=== PATIENT | male | born 1965 | race Caucasian/White ===

== ENCOUNTER 2021-02-14 09:49 | Outpatient (REF) | payer MEDICAID, SELFPAY ==
[2021-02-14 11:12] LABS: MANUAL DIFF FLAG NO
[2021-02-14 12:05] LABS: Basophils Percent Auto 0.3 % (0-2); Eosinophils Absolute Auto 0.1 X10*3/uL (0.0-0.4); Eosinophils Percent Auto 1.1 % (0-4); Hematocrit 41.7 % (42.0-52.0); Hemoglobin 14.3 g/dl (14.0-18.0); Imm Gran Abs Auto 0.03 X10*3/uL (0.00-0.03); Imm Gran Pct Auto 0.3 % (0.0-0.4); Lymphocytes Absolute Auto 2.1 X10*3/uL (1.2-4.9); Lymphocytes Percent Auto 23.6 % (20-40); Mean Corpuscular HGB Conc 34.3 g/dl (31.0-36.0); Mean Corpuscular Hemoglobin 28.8 pg (27.0-33.0); Mean Corpuscular Volume 83.9 fL (80.0-98.0); Mean Platelet Volume 10.9 fL (9.4-12.4); Monocytes Absolute Auto 0.6 X10*3/uL (0.1-1.2); Monocytes Percent Auto 6.2 % (2-11); Neutrophils Absolute Auto 6.2 x10*3/uL (2.0-8.3); Neutrophils Percent Auto 68.5 % (45-73); Platelet Count 255 X10*3/uL (160-400); Red Blood Count 4.97 X10*6/uL (4.60-5.80)
== END 2021-02-14 09:50 | disposition home or self-care (01) ==
LOC: HO.LAB 09:49
PROVIDERS: PCP Internal Medicine; Visit Provider Internal Medicine Pulmonary Disease
DX: J45.909 Unspecified asthma, uncomplicated (principal); Z91.09 Other allergy status, other than to drugs and biological substances
CPT/HCPCS: 36415; 82785; 85025; 86003; 99202

== ENCOUNTER 2021-02-26 08:53 | Outpatient (REF) | payer MEDICAID, SELFPAY ==
--- NOTE | 2021-02-26 14:35 | PFT_ITS ---
FLOWS: FEV1 92% of predicted at 3.17 L. FVC 88% of predicted at 3.90 L. FEV1 to FVC ratio of 0.81. No bronchodilator response except in small to medium airways. LUNG VOLUMES: Total lung capacity 81% of predicted at 5.19 L. Residual volume 71% of predicted at 1.39 L. Slow vital capacity 86% of predicted at 3.81 L. Expiratory reserve volume 105% of predicted at 1.36 L. Diffusion capacity is mildly decreased, diffusion capacity adjust to normal after correction for alveolar ventilation. IMPRESSION: No obstructive or restrictive ventilatory defect. No bronchodilator response except in small to medium airways. MD OSBALDO Au/MODL / [id number]
== END 2021-02-26 08:54 | disposition home or self-care (01) ==
LOC: HO.RESP 08:53
PROVIDERS: Visit Provider Internal Medicine Pulmonary Disease
DX: J45.909 Unspecified asthma, uncomplicated (principal)
CPT/HCPCS: 94060; 94727; 94729

== ENCOUNTER → 2021-03-06 08:57 | Outpatient (BNVA) | payer MEDICAID, SELFPAY | PROVIDERS: PCP Internal Medicine; Visit Provider Internal Medicine Pulmonary Disease | DX: J45.909 Unspecified asthma, uncomplicated (principal) | CPT/HCPCS: 99212 ==

== ENCOUNTER 2022-01-07 11:42 | Outpatient (REF) | payer MEDICAID, SELFPAY ==
--- NOTE | ~2022-01-07 | XR_ITS ---
EXAMINATION: XR SHOULDER, LEFT CLINICAL INFORMATION: Pain COMPARISON: None TECHNIQUE: AP external rotation, Grashey, scapular Y, and axillary views of the left shoulder. FINDINGS: Bone alignment is normal. No fracture or dislocation. Normal glenohumeral joint. Arthritis at the acromioclavicular joint. Normal soft tissues. XR/XR shoulder LT min 2V IMPRESSION: Arthritis at the acromioclavicular joint.
== END 2022-01-07 11:43 | disposition home or self-care (01) ==
LOC: HO.XRAY 11:42
PROVIDERS: PCP Registered Nurse; Visit Provider Emergency Medicine
DX: M25.512 Pain in left shoulder (principal)
CPT/HCPCS: 73030

== ENCOUNTER 2022-07-09 11:50 | Emergency (ER) | payer MEDICAID, SELFPAY ==
--- NOTE | ~2022-07-09 | XR_ITS ---
EXAMINATION: XR CHEST CLINICAL INFORMATION: Shortness of breath COMPARISON: None available. TECHNIQUE: 2 views of the chest were obtained. FINDINGS: No significant abnormality is noted involving the heart, lungs, mediastinum, bony thorax or soft tissues. XR/XR chest 2V IMPRESSION: Unremarkable examination.
--- NOTE | 2022-07-09 12:17 | ED_ITS ---
HPI - SOB/Dyspnea General Chief Complaint: Dyspnea Stated Complaint: Trouble breathing Time Seen by Provider: 07/09/22 14:18 History of Present Illness HPI Narrative: patient complains of sneezing congestion feeling like there is Dust in is throat is lungs, with some episodes of difficulty breathing which is described as feeling mild chest tightness and feeling some dust or irritation in the back of his throat, he denies any chest pain, he is not short of breath now, he has no difficulty swallowing but feels some throat irritation as he swallows He also says he has had episodes of anxiety which he associates with this shortness of breath but is not sure, he denies any suicidal or homicidal thoughts he is not hearing voices and he is not depressed He denies headache he denies chest pain he denies abdominal pain nausea or vomiting denies any calf pain or swelling denies any leg swelling Related Data Home Medications Medication Instructions Recorded Confirmed albuterol sulfate 90 mcg/actuation 2 puff inhalation Q6H PRN 02/14/21 aerosol inhaler Previous Rx's Medication Instructions Recorded cetirizine 10 mg tablet 10 mg PO DAILY PRN allergy 07/09/22 symptoms #30 tabs lorazepam 1 mg tablet (Ativan) 1 mg PO BID PRN anxiety #5 tabs 07/09/22 Allergies Allergy/AdvReac Type Severity Reaction Status Date / Time house dust Allergy Unknown Unknown Verified 03/06/21 09:00 [facility] Past Medical History Source: nursing notes reviewed Social History Social History Advance Directives: No Advance Directives Information Provided: No Physical Exam Vital Signs: Vital Signs: Last Vital Signs Temp 97.9 F 07/09/22 16:00 Pulse 85 07/09/22 16:00 Resp 16 07/09/22 16:00 BP 171/92 H 07/09/22 16:00 Pulse Ox 100 07/09/22 16:00 O2 Del Method Room Air 07/09/22 16:00 BMI result Body Mass Index 25.1 General appearance no acute distress comfortable cooperative Eyes no redness or discharge The sinuses no tender Pharynx is clear without redness swelling or exudate, uvula is midline, there is no drooling, voice is normal The neck is palpated while he swallows any swallows easily no mass or swelling appreciated There is no stridor Neck is supple Chest clear to auscultation bilateral with full symmetric equal breath sounds no adventitious sounds Heart no murmur Abdomen soft nontender Extremities range of motion x4 without any calf tenderness or swelling no pedal edema Skin no rash Course Course Course Narrative: RME - 57 yo male with history of allergies and asthma who present to the ER for evaluation of difficulty breathing and sensation that there is dust in his lungs for the last 2 weeks. Hypertensive, tachycardic in triage but saturating 100% and speaking in complete sentences. Lungs CTAB on exam. Plan: CXR, EKG, lab workup, COVID swab. CBC was without acute abnormality, D-dimer was checked under 150, patient's pulse was 85, he had no shortness of breath in the emergency room, blood clot very unlikely, chemistry did show a glucose of 323, and patient is advised to follow with his doctor to discuss best management of his diabetes Chest x-ray was normal, EKG was a normal sinus rhythm with a rate of 87, RI and QRS were normal, QT was normal, there were no acute ST changes no acute ischemic changes As patient has be using his inhaler a lot at home he is treated with prednisone and cetirizine for possible allergies, as he does feel anxiety he is given a script for Ativan His main complaint of feeling like his throat is blocked may be helped by the prednisone but in the ER he is easily swallowing food and drink, no mass was appreciated, the pharynx was totally normal in appearance and if symptom co ntinues he could follow with his doctor for referral to ENT to be scoped but at this time there is no acute emergency in his throat Well-appearing patient no chest pain no shortness of breath now, tolerating p.o. easily is treated for allergies and asthma and anxiety Medical Decision Making Lab Data [facility] Lab Attestation statement: I reviewed the patient's lab results. 07/09/22 12:41 07/09/22 12:41 Labs: Lab Results 07/09/22 07/09/22 07/09/22 Range/Units 12:41 12:41 12:41 WBC 9.9 (4.8-10.8) X10*3/uL RBC 4.91 (4.60-5.80) X10*6/uL Hgb 13.9 L (14.0-18.0) g/dl Hct 41.0 L (42.0-52.0) % MCV 83.5 (80.0-98.0) fL MCH 28.3 (27.0-33.0) pg MCHC 33.9 (31.0-36.0) g/dl RDW 12.7 (11.0-16.0) % Plt Count 248 (160-400) X10*3/uL MPV 10.7 (9.4-12.4) fL Immature Gran % (Auto) 0.2 (0.0-0.4) % Neut % (Auto) 68.1 (45-73) % Lymph % (Auto) 23.5 (20-40) % [place] % (Auto) 7.2 (2-11) % Eos % (Auto) 0.8 (0-4) % Baso % (Auto) 0.2 (0-2) % Lymph # (Auto) 2.3 (1.2-4.9) X10*3/uL [place] # (Auto) 0.7 (0.1-1.2) X10*3/uL Eos # (Auto) 0.1 (0.0-0.4) X10*3/uL Baso # (Auto) 0.0 (0.0-0.2) X10*3/uL Abs Immat Gran (auto) 0.02 (0.00-0.03) X10*3/uL Absolute Neuts (auto) 6.7 (2.0-8.3) x10*3/uL Absolute Nucleated RBC 0.000 (0.0-0.012) X10*3/uL Nucleated RBC % (auto) 0.0 (0.0-0.2) /100WBC D-Dimer High Sensitivty NG/ML Sodium 136 (135-145) mmol/L Potassium 4.3 (3.3-5.1) mmol/L Chloride 101 (96-108) mmol/L Carbon Dioxide 24 (22-29) mmol/L Anion Gap 15 (12-20) BUN 21 H (9-16) mg/dL Creatinine 1.23 (0.5-1.4) mg/dL Estim Creat Clear Calc 63.4 Estimated GFR > 60 Random Glucose 323 H (60-115) mg/dL Calcium 9.5 (8.4-10.2) mg/dL Magnesium 1.9 (1.6-2.6) mg/dL Total Bilirubin 0.7 (0.0-1.0) mg/dL Direct Bilirubin 0.2 (0.0-0.5) mg/dL AST 18 (5-37) U/L ALT 18 (0-40) U/L Alkaline Phosphatase 79 (39-117) U/L B-Natriuretic Peptide 14 (<100) pg/mL Total Protein 7.3 (6.5-8.0) g/dL Albumin 4.0 (3.5-5.0) g/dL COVID-19 ([facility]ELLE) (Negative) COVID-19 Clin Com 07/09/22 07/09/22 Range/Units 12:41 15:24 WBC (4.8-10.8) X10*3/uL RBC (4.60-5.80) X10*6/uL Hgb (14.0-18.0) g/dl Hct (42.0-52.0) % MCV (80.0-98.0) fL MCH (27.0-33.0) pg MCHC (31.0-36.0) g/dl RDW (11.0-16.0) % Plt Count (160-400) X10*3/uL MPV (9.4-12.4) fL Immature Gran % (Auto) (0.0-0.4) % Neut % (Auto) (45-73) % Lymph % (Auto) (20-40) % [place] % (Auto) (2-11) % Eos % (Auto) (0-4) % Baso % (Auto) (0-2) % Lymph # (Auto) (1.2-4.9) X10*3/uL [place] # (Auto) (0.1-1.2) X10*3/uL Eos # (Auto) (0.0-0.4) X10*3/uL Baso # (Auto) (0.0-0.2) X10*3/uL Abs Immat Gran (auto) (0.00-0.03) X10*3/uL Absolute Neuts (auto) (2.0-8.3) x10*3/uL Absolute Nucleated RBC (0.0-0.012) X10*3/uL Nucleated RBC % (auto) (0.0-0.2) /100WBC D-Dimer High Sensitivty < 150 NG/ML Sodium (135-145) mmol/L Potassium (3.3-5.1) mmol/L Chloride (96-108) mmol/L Carbon Dioxide (22-29) mmol/L Anion Gap (12-20) BUN (9-16) mg/dL Creatinine (0.5-1.4) mg/dL Estim Creat Clear Calc Estimated GFR Random Glucose (60-115) mg/dL Calcium (8.4-10.2) mg/dL Magnesium (1.6-2.6) mg/dL Total Bilirubin (0.0-1.0) mg/dL Direct Bilirubin (0.0-0.5) mg/dL AST (5-37) U/L ALT (0-40) U/L Alkaline Phosphatase (39-117) U/L B-Natriuretic Peptide (<100) pg/mL Total Protein (6.5-8.0) g/dL Albumin (3.5-5.0) g/dL COVID-19 ([facility]LE) Negative (Negative) COVID-19 Clin Com See Note Discharge Plan Discharge Clinical Impression: Asthma, Allergies, Anxiety Patient Disposition: Home, Self-Care Additional Instructions: no sign of any dangerous or concerning condition now Chest x-ray was normal EKG did not show any sign of heart attack Blood clot test was negative Other lab work did show your sugar was over 300 so follow closely with primary doctor to make sure your diabetes medicines are just did the best possible Return to the ER any time any worse condition or any concerns We are treating allergies with [facility] allergy medicine If you think you are getting occasional anxiety attacks you could use Ativan if needed and see if it is helpful For both these conditions follow with primary doctor Prescriptions: New cetirizine 10 mg tablet 10 mg PO DAILY PRN (Reason: allergy symptoms) Qty: 30 0RF lorazepam [Ativan] 1 mg tablet 1 mg PO BID PRN (Reason: anxiety) Qty: 5 0RF No Action albuterol sulfate 90 mcg/actuation HFA aerosol inhaler 2 puff inhalation Q6H PRN Interventions: ED Discharge Assessment Last Done: 07/09/22 17:38 Discharge Date/Time: 07/09/22 17:38
[2022-07-09 12:18] VITALS: BP 187/91; PULSE 104; RESP 18; TEMP 36.6; O2SAT 100; BMI 25.1
--- NOTE | 2022-07-09 12:19 | ECG_ITS ---
Test Reason : sob Blood Pressure : / mmHG Vent. Rate : 087 BPM Atrial Rate : 087 BPM P-R Int : 128 ms QRS Dur : 080 ms QT Int : 338 ms P-R-T Axes : 047 029 033 degrees QTc Int : 406 ms Normal sinus rhythm Normal ECG No previous ECGs available Referred By: Susan Patterson Electronically Signed By:ANOOP SALAS MD
[2022-07-09 12:51] LABS: MANUAL DIFF FLAG NO
[2022-07-09 12:55] LABS: Basophils Percent Auto 0.2 % (0-2); Eosinophils Absolute Auto 0.1 X10*3/uL (0.0-0.4); Eosinophils Percent Auto 0.8 % (0-4); Hemoglobin 13.9 g/dl (14.0-18.0); Imm Gran Abs Auto 0.02 X10*3/uL (0.00-0.03); Imm Gran Pct Auto 0.2 % (0.0-0.4); Lymphocytes Absolute Auto 2.3 X10*3/uL (1.2-4.9); Lymphocytes Percent Auto 23.5 % (20-40); Mean Corpuscular HGB Conc 33.9 g/dl (31.0-36.0); Mean Corpuscular Hemoglobin 28.3 pg (27.0-33.0); Mean Corpuscular Volume 83.5 fL (80.0-98.0); Mean Platelet Volume 10.7 fL (9.4-12.4); Monocytes Absolute Auto 0.7 X10*3/uL (0.1-1.2); Monocytes Percent Auto 7.2 % (2-11); Neutrophils Absolute Auto 6.7 x10*3/uL (2.0-8.3); Neutrophils Percent Auto 68.1 % (45-73); Platelet Count 248 X10*3/uL (160-400); Red Blood Count 4.91 X10*6/uL (4.60-5.80); Red Cell Distribution Width 12.7 % (11.0-16.0); White Blood Count 9.9 X10*3/uL (4.8-10.8)
[2022-07-09 13:07] LABS: Alanine Aminotransferase 18 U/L (0-40); Alkaline Phosphatase 79 U/L (39-117); Anion Gap 15 (12-20); Aspartate Amino Transferase 18 U/L (5-37); Bilirubin Direct 0.2 mg/dL (0.0-0.5); Bilirubin Total 0.7 mg/dL (0.0-1.0); Blood Urea Nitrogen 21 mg/dL (9-16); COVID-19 Test Negative (Negative); Calcium 9.5 mg/dL (8.4-10.2); Carbon Dioxide 24 mmol/L (22-29); Chloride 101 mmol/L (96-108); Creatinine Clr Calc Pharmacy 63.4; Estimated Glomerular Filt Rate > 60; Glucose Random 323 mg/dL (60-115); IDNOW Serial# 08D9AD1C; Magnesium 1.9 mg/dL (1.6-2.6); Potassium 4.3 mmol/L (3.3-5.1); Sodium 136 mmol/L (135-145); Total Protein 7.3 g/dL (6.5-8.0)
[2022-07-09 13:13] LABS: B Type Natriuretic Peptide 14 pg/mL (<100)
[2022-07-09 16:00] VITALS: BP 171/92; PULSE 85; RESP 16; TEMP 36.6; O2SAT 100
[2022-07-09 16:26] LABS: D Dimer High Sensitivity < 150 NG/ML
== END 2022-07-09 17:38 | disposition home or self-care (01) ==
PROVIDERS: Physician Assistant; Physician Assistant Medical; Emergency Provider Emergency Medicine; PCP Registered Nurse
DX: J45.909 Unspecified asthma, uncomplicated (principal); T78.40XA Allergy, unspecified, initial encounter; X58.XXXA Exposure to other specified factors, initial encounter; F41.9 Anxiety disorder, unspecified; R06.02 Shortness of breath; I10 Essential (primary) hypertension; R00.0 Tachycardia, unspecified; Z20.822 Contact with and (suspected) exposure to COVID-19; E11.9 Type 2 diabetes mellitus without complications; Z79.899 Other long term (current) drug therapy
CPT/HCPCS: 36415; 71046; 80048; 80076; 83735; 83880; 85025; 85379; 87635; 93005; 99283; 99284

== ENCOUNTER 2023-03-06 11:09 | Outpatient (REF) | payer MEDICAID, SELFPAY ==
[2023-03-06 14:14] LABS: Alanine Aminotransferase 14 U/L (0-40); Albumin Level 3.9 g/dL (3.5-5.0); Alkaline Phosphatase 93 U/L (39-117); Anion Gap 14 (12-20); Aspartate Amino Transferase 13 U/L (5-37); Bilirubin Total 0.5 mg/dL (0.0-1.0); Blood Urea Nitrogen 21 mg/dL (9-16); Calcium 9.7 mg/dL (8.4-10.2); Carbon Dioxide 26 mmol/L (22-29); Chloride 99 mmol/L (96-108); Cholesterol 208 mg/dL (<200); Estimated Glomerular Filt Rate 53; Glucose Random 336 mg/dL (60-115); HDL Cholesterol 40 mg/dL (>40); LDL Cholesterol Calculated 147 mg/dL (<100); Potassium 4.7 mmol/L (3.3-5.1); Sodium 134 mmol/L (135-145); Total Protein 7.5 g/dL (6.5-8.0); Triglycerides 107 mg/dL (<150)
[2023-03-06 15:38] LABS: Creatinine Urine 122.12 mg/dL; Microalbum/Creatinine Ratio Ur 249.7 ug/mg cr (<30)
== END 2023-03-06 11:10 | disposition home or self-care (01) ==
LOC: HO.HHCL 11:09
PROVIDERS: Visit Provider General Practice
DX: E11.65 Type 2 diabetes mellitus with hyperglycemia (principal)
CPT/HCPCS: 36415; 80053; 80061; 82043; 82570

== ENCOUNTER 2023-09-12 14:05 | Outpatient (REF) | payer MEDICAID, SELFPAY ==
[2023-09-12 16:20] LABS: MANUAL DIFF FLAG NO
[2023-09-12 16:22] LABS: Basophils Percent Auto 0.4 % (0-2); Eosinophils Absolute Auto 0.1 X10*3/uL (0.0-0.4); Eosinophils Percent Auto 1.4 % (0-4); Hemoglobin 13.7 g/dl (14.0-18.0); Imm Gran Abs Auto 0.04 X10*3/uL (0.00-0.03); Imm Gran Pct Auto 0.4 % (0.0-0.4); Lymphocytes Absolute Auto 2.4 X10*3/uL (1.2-4.9); Mean Corpuscular HGB Conc 34.3 g/dl (31.0-36.0); Mean Corpuscular Hemoglobin 28.5 pg (27.0-33.0); Mean Corpuscular Volume 83.2 fL (80.0-98.0); Mean Platelet Volume 10.4 fL (9.4-12.4); Monocytes Absolute Auto 0.7 X10*3/uL (0.1-1.2); Monocytes Percent Auto 7.4 % (2-11); Neutrophils Absolute Auto 6.2 x10*3/uL (2.0-8.3); Neutrophils Percent Auto 65.4 % (45-73); Platelet Count 250 X10*3/uL (160-400); Red Blood Count 4.81 X10*6/uL (4.60-5.80); Red Cell Distribution Width 12.5 % (11.0-16.0); White Blood Count 9.4 X10*3/uL (4.8-10.8)
[2023-09-12 16:33] LABS: Estimated Average Glucose 223 mg/dL; Hemoglobin A1c % 9.4 % (<6.0)
[2023-09-12 16:35] LABS: Alanine Aminotransferase 19 U/L (0-40); Alkaline Phosphatase 84 U/L (39-117); Anion Gap 13 (12-20); Aspartate Amino Transferase 14 U/L (5-37); Bilirubin Total 0.4 mg/dL (0.0-1.0); Blood Urea Nitrogen 18 mg/dL (9-16); Calcium 9.8 mg/dL (8.4-10.2); Carbon Dioxide 25 mmol/L (22-29); Chloride 101 mmol/L (96-108); Cholesterol 134 mg/dL (<200); Estimated Glomerular Filt Rate > 60; Glucose Random 227 mg/dL (60-115); HDL Cholesterol 34 mg/dL (>40); LDL Cholesterol Calculated 85 mg/dL (<100); Potassium 4.1 mmol/L (3.3-5.1); Sodium 135 mmol/L (135-145); Total Protein 7.4 g/dL (6.5-8.0); Triglycerides 75 mg/dL (<150)
[2023-09-12 16:37] LABS: Creatinine Urine 72.61 mg/dL; Microalbum/Creatinine Ratio Ur 327.7 ug/mg cr (<30)
[2023-09-12 16:54] LABS: TSH reflex Free T4 0.92 uIU/mL (0.32-4.0)
== END 2023-09-12 14:06 | disposition home or self-care (01) ==
LOC: HO.HHCL 14:05
PROVIDERS: Nurse Practitioner Family; Visit Provider General Practice
DX: R53.83 Other fatigue (principal); E11.65 Type 2 diabetes mellitus with hyperglycemia
CPT/HCPCS: 36415; 80053; 80061; 82043; 82570; 83036; 84443; 85025

== ENCOUNTER 2023-11-18 13:20 | Outpatient (REF) | payer MEDICAID, SELFPAY ==
--- NOTE | ~2023-11-18 | XR_ITS ---
EXAMINATION: XR SHOULDER, RIGHT CLINICAL INFORMATION: Right shoulder pain COMPARISON: None available. TECHNIQUE: Three views of the right shoulder. FINDINGS: No fracture or malalignment. Mild glenohumeral and acromioclavicular osteoarthritis. XR/XR shoulder RT min 2V IMPRESSION: Mild glenohumeral and acromioclavicular osteoarthritis. No fracture. Electronically signed by: Jonathan Khan MD 11/18/2023 03:16 PM EDT
== END 2023-11-18 13:21 | disposition home or self-care (01) ==
LOC: HO.HHCX 13:20
PROVIDERS: Visit Provider General Practice
DX: M25.511 Pain in right shoulder (principal); G89.29 Other chronic pain
CPT/HCPCS: 73030

== ENCOUNTER 2023-12-12 10:00 | Outpatient (RCR) | payer MEDICAID, SELFPAY ==
[2023-10-10 10:43] VITALS: BP 188/94; PULSE 78
== END 2024-01-22 10:51 | disposition home or self-care (01) ==
LOC: HO.PT 10:00
PROVIDERS: PCP Registered Nurse; Visit Provider Nurse Practitioner Family
DX: I69.30 Unspecified sequelae of cerebral infarction (principal)
CPT/HCPCS: 97110; 97112; 97116; 97162; 97530

== ENCOUNTER 2023-12-17 10:00 | Outpatient (RCR) | payer MEDICAID, SELFPAY ==
--- NOTE | 2023-11-05 12:43 | MHC.OT.EP ---
[address] [phone] Occupational Therapy Plan of Care Patient Name: Sen Hameed Date of Evaluation: 11/05/23 Diagnosis: L CVA - R UE DECREASED ROM/STRENGTH Pain Location: R UE Pain Score: 6 Pain Scale Used: Numeric (0 - 10) Aggravating Factors: weight bearing onto UE and ER of shoulder Alleviating Factors: resting/ immobilizing Assessment: Pt is a 58 yr. old R hand dominant male who had a L CVA in July 2023. He went to [facility] where he was treated for the CVA and his girlfriend reports he had therapy through [facility] as well. He has decreased AROM of his R UE and hand, but has full PROM of his UE and hand. Pt presents w/ normal tone, and wrist in flexion, he is able to passively move his shoulder, elbow, wrist, and hand w/ minimal complaints of pain and restriction. Pt reports pain throughout his entire arm and into his hand . He has been referred to skilled OT therapy for increased functional use of his UE. Frequency and Duration: The patient will be seen 2xs a week 8 weeks Short Term Goals: Pt will be complaint w/ orthoses wear for increased wrist/ digit extension Pt will be complaint w/ his HEP Pt will be complaint w/ weight bearing his UE throughout the day [employer] Goals: Pt's AROM of his shoulder will increase to 20 Pt will make a composite fist Pt will report performing B hand activities Treatment Plan: Therapeutic Exercise Therapeutic Activity Home Exercise Program Splinting Neuro Re-ed Patient Education Desensitization/Sensory Re-ed Edema Control ADL Training Ultrasound NMES Iontophoresis Paraffin Fluidotherapy MHP Cold Packs Joint Mobilization Soft Tissue Mobilization Kinesiotaping Other (see comments) splint wrist/ digit extension ; fabricate orthoses Electronically Signed By: Joleen Phan OTR/L Please Sign and return to therapist. Thank you once again for your referral.
--- NOTE | 2023-12-17 10:39 | MHC.OT.DC ---
[address] [phone] F: [phone] Occupational Therapy Discharge Note Patient Name: Sen Hameed Provider: Radha Zarco Diagnosis: L CVA - R UE DECREASED ROM/STRENGTH Date of Surgery: Date of Evaluation: 11/05/23 Date of Discharge: Treatments to Date: 11 Cancellations to Date: No Shows to Date: Discharge Status: Independent with HEP Discharge Summary: Pt tolerated therapy well today ; He is complaint w/ his HEP which we reviewed today w/ him and his partner Kim. He is performing it 3xs a day. He has full PROM of his elbow and wrist and no AROM of his elbow/ tape. Pt will be d/charged today and concentrate on his HEP. He can Return to OT therapy if needed Electronically Signed By: Joleen Phan OTR/L Reviewed/agree with student documentation: N/A Therapist: Please Sign and return to therapist, thank you for your referral.
== END 2023-12-17 10:39 | disposition home or self-care (01) ==
LOC: HO.OT 10:00
PROVIDERS: PCP General Practice; Visit Provider General Practice
DX: R29.898 Other symptoms and signs involving the musculoskeletal system (principal)
CPT/HCPCS: 29125; 97110; 97112; 97166; 97535

== ENCOUNTER 2024-01-30 09:57 | Outpatient (REF) | payer MEDICAID, SELFPAY | END 2024-01-30 09:58 | disposition home or self-care (01) | LOC: HO.HHCL 09:57 | PROVIDERS: Visit Provider Emergency Medicine | DX: Z13.89 Encounter for screening for other disorder (principal) ==

== ENCOUNTER 2024-01-30 10:00 | Outpatient (REF) | payer MEDICAID, SELFPAY ==
[2024-01-30 11:57] LABS: Anion Gap 10 (12-20); Blood Urea Nitrogen 20 mg/dL (9-16); Carbon Dioxide 27 mmol/L (22-29); Chloride 104 mmol/L (96-108); Estimated Glomerular Filt Rate > 60; Glucose Random 266 mg/dL (60-115); Magnesium 1.9 mg/dL (1.6-2.6); Potassium 4.7 mmol/L (3.3-5.1); Sodium 136 mmol/L (135-145)
[2024-01-30 13:28] LABS: Appearance Urine Cloudy; Color Urine Yellow; Glucose Urine UA >=1000 mg/dL (Negative); Leukocyte Esterase Urine Small (1+) (Negative); Nitrite Urine Negative (Negative); PH 5.5 (5.0-9.0); Specific Gravity - Urine 1.025 (1.005-1.025); UMIC TRIGGER UA YES; Urine Blood Small (1+) (Negative); Urine Ketones Negative (Negative); Urine Protein 100 (2+) mg/dL (Neg-Trace)
[2024-01-30 13:46] LABS: Bacteria Urine Trace (None Seen); Hyaline Casts Urine 0-2 /LPF (0-2); RBC Urine 0-2 /HPF (0-2)
== END 2024-01-30 10:01 | disposition home or self-care (01) ==
LOC: HO.HHCL 10:00
PROVIDERS: Visit Provider Emergency Medicine
DX: R25.2 Cramp and spasm (principal); R82.90 Unspecified abnormal findings in urine
CPT/HCPCS: 36415; 80048; 81001; 83735

== ENCOUNTER 2024-02-03 11:06 | Outpatient (REF) | payer MEDICAID, SELFPAY ==
[2024-02-03 13:41] LABS: Estimated Glomerular Filt Rate > 60
== END 2024-02-03 11:07 | disposition home or self-care (01) ==
LOC: HO.HHCL 11:06
PROVIDERS: Visit Provider Emergency Medicine
DX: R25.2 Cramp and spasm (principal)
CPT/HCPCS: 36415; 82550; 82565; 87086

== ENCOUNTER 2024-02-06 09:48 | Outpatient (REF) | payer MEDICAID, SELFPAY | END 2024-02-06 09:49 | disposition home or self-care (01) | LOC: HO.HHCL 09:48 | PROVIDERS: Visit Provider Emergency Medicine | DX: R82.90 Unspecified abnormal findings in urine (principal) | CPT/HCPCS: 87086 ==

== ENCOUNTER 2024-02-16 10:33 | Outpatient (REF) | payer MEDICAID, SELFPAY | END 2024-02-16 10:34 | disposition home or self-care (01) | LOC: HO.HHCL 10:33 | PROVIDERS: Visit Provider Emergency Medicine | DX: R82.90 Unspecified abnormal findings in urine (principal) | CPT/HCPCS: 87086; 87147 ==

== ENCOUNTER 2024-08-27 09:38 | Outpatient (REF) | payer MEDICAID, SELFPAY ==
--- OUTSIDE RECORDS SUMMARY | 2024-08-27 09:44 | XMS_ITS | Clinical Summary ---
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 Pt check sugar BID. Glucometer freestyle lite. Disp#1. No refills. 1 Each 11/28/19 18 Active lancets (FREESTYLE LANCETS) 28 gaugeIndications:T ype 2 diabetes mellitus with complication, without long-term current use of insulin (CMS & HHS-[facility]) 1 Applicator 2 (two) times daily FREESTYLE Dx E11.9, pt check BS BID. Disp#100, refills #11. 100 Each 11 12/10/19 20 Active alcohol swabs (ALCOHOL PREP SWABS)Indications: Type 2 diabetes mellitus with complication, without long-term current use of insulin (CMS & HHS-HCC) Dx: DM2. Pt check BS BID. Disp#100, 11 refills. 100 Each 11 12/10/19 [address] tabletIndications: Type 2 diabetes mellitus with complication, without long-term current use of insulin (CMS & HHS-HCC) Take 1 Tab by mouth once daily 180 Tab 1 12/10/19 20 Active glipiZIDE (GLUCOTROL XL) 5 mg ER, 24 hour tablet Take 1 Tablet by mouth once daily with breakfast 30 Tablet 1 11/30/20 20 Active cetirizine (ZYRTEC) 10 mg tabletIndications: Allergy, initial encounter Take 1 Tablet by mouth once daily 30 Tablet 2 11/04/19 21 Active blood sugar diagnostic (FREESTYLE TEST) stripsIndications: Type 2 diabetes mellitus with complication, without long-term current use of insulin ([facility]) 1 Each 2 (two) times daily FREESTYLE LITE Dx E11.9, pt check BS BID. Disp#100, refills #11. 100 Each 11 11/04/19 21 Active diphenhydrAMINE HCL (BENADRYL) 50 mg capsuleIndications :Allergy, initial encounter Take 1 Capsule by mouth nightly at bedtime as needed for itching or sleep 30 Capsule 1 11/04/19 21 Active losartan (COZAAR) 25 mg tabletIndications: Essential hypertension Take 1 Tablet by mouth once daily 30 Tablet 1 11/04/19 21 Active pravastatin (PRAVACHOL) 80 mg tabletIndications: Hyperlipidemia, unspecified hyperlipidemia type Take 1 Tablet by mouth once daily 30 Tablet 1 11/04/19 21 Active metFORMIN (GLUCOPHAGE) 850 mg tabletIndications: Type 2 diabetes mellitus with complication, without long-term current use of insulin ([facility]) Take 1 Tablet by mouth 2 (two) times daily with a meal 120 Tablet 3 11/04/19 21 Active Active Problems Problem Noted Date Diagnosed Date Essential hypertension 01/19/2020 Controlled type 2 diabetes m devan with microalbuminuria, without long-term current use of insulin ([facility]) 05/10/2014 Overview (11/27/2017): A1c 12.5 in 2014--started on metformin Stopped taking his meds for unknown period of time Hyperlipidemia 05/10/2014 Overview (05/10/2014): Start Pravastatin 40 mg po on 2014 Chest congestion 05/06/2014 Overview (06/08/2014): 2014 [facility] negative Immunizations Immunization Administration Dates Next Due PPD 01/17/2020 Family History Medical History Relation Name Comments Diabetes Mother Heart Problems Mother Hypertension Mother Asthma Sister Relation Name Status Comments Father Alive Mother Sister Social History Tobacco Use Types Packs/Day Years Used Date Smoking Tobacco: Former Smokeless Tobacco: Former Alcohol Use Standard Drinks/Week Comments Yes 0 (1 standard drink = 0.6 oz pur e alcohol) socially Social Connections Answer Date Recorded Connectedness 0 10/29/2023 Financial Resource Strain Answer Date R ecorded Financial Resource Strain 0 2018 Stress Answer Date Recorded Stress 0 10/03/2018 Physical Activity Answer Date Recorded Physical Activity 0 10/03/2018 Food Insecurity Answer Date Recorded Food 0 11/06/2023 Transportation Needs Answer Date Record ed Transportation 0 10/03/2018 Housing Stability Answer Date Recorded Housing 0 10/03/2018 Safety and Environment Answer Date Leeroy rded Safety 0 10/03/2018 Utilities Answer Date Recorded Utilities 0 10/03/2018 Employment Answer Date Recorded Stress 0 10/29/2023 Sex and Gender Information Value Date Recorded Sex Assigned at Male 11/27/2017 6:58 AM PDT Legal Sex Male 4:53 AM PDT Gender Identity Male 11/27/2017 6:58 AM PDT Sexual Orientation Straight 11/27/2017 6: 58 AM PDT 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 Not on file Not on file Last Filed Vital Signs Vital Sign Reading Time Taken Comments Blood Pressure 161/72 11/03/2020 2:10 PM EDT Pulse 105 11/03/2020 2:10 PM EDT Temperature 36.8 C (98.3 F) 11/03/2020 2:10 PM EDT Respiratory Rate 14 11/03/2020 2:10 PM EDT Oxygen Saturation - - Inhaled Oxygen Concentration - - Weight 70.8 kg (156 lb) 11/03/2020 2:10 PM EDT Height 165.1 cm (5' 5 ) 11/03/2020 2:10 PM EDT Body Mass Index 25.96 11/03/2020 2:10 PM EDT Plan of Treatment Health Maintenance Due Date Last Done Comments Anxiety Screening 1967 Dental Examination 1967 Hepatitis C Screening 1967 Tobacco Screening 1967 HIV Screening 1982 Imm-DTaP/Tdap/Td (1 - Tdap) 1986 Imm-Hepatitis B (1 of 3 - 19 + 3-dose series) 1986 Imm-Pneumococcal 50+ (1 of 2 - PCV) 1986 CT Colonography 2012 Colonoscopy 2012 FIT/gFOBT 2012 Fecal DNA 2012 Flexible Sigmoidoscopy 2012 Imm-Zoster, Recombinant (1 of 2) 2017 Retinopathy Screening 12/29/2020 12/30/2019 (Managed by Outside Provider) Urine Albumin Creatinine Rat io Screening 01/02/2021 01/03/2020, 01/03/2020 Annual Wellness (Adult): Indicated (All Coverage) 01/18/2021 01/19/2020, 05/27/2014 Diabetes Foot Exam 01/18/2021 01/19/2020 Lipid Screening 05/11/2022 05/11/2021, 10/12, 01/03/2020, Additional history exists Hemoglobin A1c 10/12/2022 07/12/2022, 12/12, 11/27/2017, Additional history exists Serum Creatinine 07/10/2023 07/09/2022, 02/2021, 11/03/2020, Additional history exists [id number] ( season) 2023 Alcohol and Drug Screen 02/11/2024 01/19/20 20, 11/27/2017, 05/06/2014 Depression Annual Screen 02/11/2024 01/19/2020, 04/11 Imm-Influenza (#1) 2024 Colorectal Cancer Screening Discontinued Procedures Procedure Name Priority Date/Time Associated Diagnosis Comments COMPREHENSIVE METABOLIC PANEL Routine 05/11/2021 9:40 AM EDT LIPID PANEL Routine 05/11/2021 9:40 AM EDT MICROALBUMIN/CREATININ E RATIO, URINE, RANDOM Routine 01/03/2020 9:16 AM EST Routine lab draw HEMOGLOBIN GLYCOSYLATED A1C Routine 01/03/2020 9:16 AM EST Routine lab draw from Last 3 Months or Most Recently Relevant to Health Maintenance Results * (ABNORMAL) LIPID PANEL (05/11/2021 9:40 AM EDT) CHOLESTEROL, TOTAL 225(H) <200 mg/dL [email or web address] HDL CHOLESTEROL 41 > OR = 40 mg/dL [facility] TRIGLYCERIDES 123 <150 mg/dL [facility] LDL-CHOLESTEROL 159(H) 99 mg/dL (calc) [facility] Comment: Reference range: <100 Desirable range <100 mg/dL for primary prevention; <70 mg/dL for patients with CHD or diabetic patients with > or = 2 CHD risk factors. LDL-C is now calculated using the Jodi calculation, which is a validated novel method providing better accuracy than the Friedewald equation in the estimation of LDL-C. Luis Enrique EVANS et al. ANNA. 2013;310(19): 2406-5840 (http://education.Sport Telegram/faq/PFZ145) CHOL/HDLC RATIO 5.5(H) <5.0 (calc) [facility] NON-HDL CHOLESTEROL 184(H) <130 mg/dL (calc) [facility] Comment: For patients with diabetes plus 1 major ASCVD risk factor, treating to a non-HDL-C goal of <100 mg/dL (LDL-C of <70 mg/dL) is considered a therapeutic option. 05/11/2021 9:40 AM EDT 05/11/2021 9:41 AM EDT Narrative [facility] - 05/11/2021 8:01 PM EDT FASTING:YES Heron De La Fuente PA-C LAB - BLOOD DRAW Final Result [facility] [address] [address], [email or web address] [address] [address] * (ABNORMAL) COMPREHENSIVE METABOLIC PANEL (05/11/2021 9:40 AM EDT) GLUCOSE 301(H) 65 - 99 mg/dL [email or web address] Comment: Fasting reference interval For someone without known diabetes, a glucose value >125 mg/dL indicates that they may have diabetes and this should be confirmed with a follow-up test. UREA NITROGEN (BUN) 19 7 - 25 mg/dL [email or web address] CREATININE (blood) 0.98 0.70 - 1.33 mg/dL [facility] Comment: For patients >49 years of age, the reference limit for Creatinine is approximately 13% higher for people identified as -Zambian. GFR ESTIMATED 87 > OR = 60 mL/min/1 .73m2 [facility] EGFR 101 > OR = 60 mL/min/1 .73m2 [facility] BUN/CREATININE RATIO NOT APPLICABLE 6 - 22 [facility] SODIUM 135 135 - 146 mmol/L [facility] POTASSIUM 4.6 3.5 - 5.3 mmol/L [facility] CHLORIDE 98 98 - 110 mmol/L [facility] CARBON DIOXIDE 29 20 - 32 mmol/L [facility] CALCIUM 9.6 8.6 - 10.3 mg/dL [facility] PROTEIN, TOTAL 7.2 6.1 - 8.1 g/dL [facility] ALBUMIN 4.3 3.6 - 5.1 g/dL [facility] GLOBULIN 2.9 1.9 - 3.7 g/dL (calc) [facility] ALBUMIN/GLOBULIN RATIO 1.5 1.0 - 2.5 (calc) [facility] BILIRUBIN, TOTAL 0.6 0.2 - 1.2 mg/dL [facility] ALKALINE PHOSPHATASE 89 35 - 144 U/L [facility] AST 6(L) 10 - 35 U/L [facility] ALT 15 9 - 46 U/L [facility] 05/11/2021 9:40 AM EDT 05/11/2021 9:41 AM EDT Narrative [facility] - 05/11/2021 8:01 PM EDT FASTING:YES us Heron De La Fuente PA-C LAB - BLOOD DRAW Edited Resul t - Final [facility] [address] [address], [facility] [address] [address] * MICROALBUMIN/CREATININE RATIO, URINE, RANDOM (01/03/2020 9:16 AM EST) CREATININE, RANDOM URINE 90 mg/dL [facility] 01/03/2020 9:16 AM EST 01/03/2020 9:25 AM EST [facility]ative [facility] 01/03/2020 3:23 PM EST [employer], a member of [address] [address] [employer] - Kim Levin MD [place] [id number] ORD# [id number] Fredy Stiles MD LAB URINE AMBULATORY Final Resu lt [address] [address], [place] [phone] * (ABNORMAL) HEMOGLOBIN, GLYCOSYLATED (A1C) (01/03/2020 9:16 AM EST) GLYCATED HEMOGLOBIN A1C 13.2(H) <6.5 % [facility] ESTIMATED AVERAGE GLUCOSE 332 mg/dL [facility] 01/03/2020 9:16 AM EST 01/03/2020 9:25 AM EST Narrative [facility] - 01/03/2020 3:43 PM EST [employer], a member of [address] [address] [employer] - Kim Levin MD PT ID [id number] ORD# [id number] Fredy Stiles MD LAB - BLOOD DRAW Final Result Performing Organization Address City/[facility]/ZIP Co de Phone Number [address] [address], [place] [phone] from Last 3 Months or Most Recently Relevant to Health Maintenance Insurance [place] Member Subscriber Plan / Payer (Ef fective 2021-Present) Name:Sen Hameed Relation to Subscriber:Self Name:Sen Hameed Payer ID:[id number] Group ID:Not on file Type:Medicaid Address: [place] [id number] Care 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 [address] PCP - General Internal Medicine 11/02/19
--- OUTSIDE RECORDS SUMMARY | 2024-08-27 09:44 | XMS_ITS | Clinical Summary ---
Author Organization [address] [facility] Address [address] [place] [address] Phone Care Team Providers Care Pediatric Nurse Name Role Phone Radha Zarco MD Primary Care Provider [phone] Encounters Date Type Department Care Team Description 06/21/2024 2:00 PM EDT Treatment [address] [address] Oni Ortega, PT Sequela, post-stroke (Primary Dx) from Last 3 Months Social History Tobacco Use Types Packs/Day Years Used Date Smoking Tobacco: Never Assessed Sex and Gender Information Value Date Recorded Sex Assigned at Not on file Legal Sex Male 4:33 PM EST Gender Identity Not on file Sexual Orientation Not on file Plan of Treatment Health Maintenance Due Date Last Done Comments Diabetes: Annual Foot Exam 1977 Diabetes: Annual Retina Eye Exam 1977 DTaP,Tdap,and Td Vaccines (1 - Tdap) 1986 Hepatitis B Vaccines (1 of 3 - 19+ 3-dose series) 1986 Pneumococcal Vaccine: 50+ Years (1 of 2 - PCV) 1986 Zoster Vaccines (1 of 2) 2017 Colorectal Cancer Screening: Colonoscopy 01/09/2022 Hepatitis C Screening 01/09/2022 Medicare Annual Wellness Visit 01/09/2022 Social Influencers of Health Screening 01/09/2022 COVID-19 Vaccine ( - season) 2023 Depression Screening 02/11/2024 Diabetes: Annual Urine Albumin-Creatinine Ratio (uACR) 03/03/2024 01/03/2020, 01/03/2020 Influenza Vaccine (#1) 2024 Diabetes: Blood Sugar Control Test (HGBA1C) 11/27/2024 05/28/2024, 03/03/2024, 09/12/2023, Additional history exists Diabetes: Annual GFR (Glomerular Filtration Rate) 01/29/2025 01/30/2024, 05/11/2021 Hypertension/CHF/CAD Annual BMP Blood Test 01/29/2025 01/30/2024, 05/11/2021 Cholesterol Screening (Lipid Panel) 09/11/2028 09/12/2023, 05/11/2021, 05/11/2021, Additional history exists HIV Screening Completed 11/13/2021 HIB Vaccines Aged Out No longer eligi ble based on patient's age to complete this topic HPV Vaccines Aged Out No longer eligi ble based on patient's age to complete this topic Hepatitis A Vaccines Aged Out No long er eligible based on patient's age to complete this topic IPV Vaccines Aged Out No longer eligi ble based on patient's age to complete this topic MMR Vaccines Aged Out No longer eligi ble based on patient's age to complete this topic Meningococcal ACWY Vaccine Aged Out N o longer eligible based on patient's age to complete this topic Meningococcal B Vaccine Aged Out No l onger eligible based on patient's age to complete this topic RSV Immunization Patients Under 20 months Aged Out No longer eligible based on patient's age to complete this topic Varicella Vaccines Aged Out No longer eligible based on patient's age to complete this topic Goals Goal Patient Goal Type Associated Problems Recent Progress Patient-Stated? Author PT LTGs General No Oni Ortega, PT Note: Pt will complete 750 ft ambulation mod independent in 6 minutes Pt will ascend/descend 12 stesp with LAD mod independent Pt will transfer to/from all seated surfaces with LAD mod independent Pt will be independent with HEP PT STGs General Oni Lane, PT Note: Pt will complete TUG with LAD in less than 45 seconds - not met Pt will ambulate with LAD x200 ft with supervision with full left foot clearance through swing phase of gait - not met Pt will increase left ankle PROM DF to 5 degrees- not met Pt will increase left hip PROM extension to 5 degrees - not met Insurance MEDICAID - [place] MEDICARE Advance Directives Documents on File Type Date Recorded Patient Electrophysiology Technologist Expl anation Health Care Decision (hx) 07/17/2023 AD MORA DIRECTIVE Health Care Decision (hx) 07/16/2023 HE ALTH CARE PROXY Health Care Decision (hx) 07/16/2023 HE ALTH CARE PROXY Health Care Decision (hx) 07/16/2023 HE ALTH CARE PROXY Care Teams Pediatric Nurse Relationship Specialty Start Date End Date Radha Zarco MD [address] [place] [address] PCP - General Restaurant Host 03/30/24
--- OUTSIDE RECORDS SUMMARY | 2024-08-27 09:44 | XMS_ITS | Encounter Summary ---
Author Organization [facility] Address [address] [place] [address] Care Team Providers Care Elevator Examiner Name Role Phone Radha Zarco MD Primary Care Provider [phone] Reason for Visit * Reason Comments Med Refill Encounter Details Date Type Department Care Team ([facility] Contact Info) Description 09/29/2023 Refill [facility] MED[facility]INE [address], [place] [phone] Radha Zarco MD [address] [place], [place] [phone] Social History Tobacco Use Types Packs/Day Years Used Date Smoking Tobacco: Never Smokeless Tobacco: Never Alcohol Use Standard Drinks/Week Comments Yes 2 (1 standard drink = 0.6 oz pur e alcohol) Occasionally Housing Stability Answer Date Recorded What is your housing situation today? I have sukumar garry 02/27/[address] you li ve. Do you have problems with any of the following? Pests such as bugs, ants, or mice 02/27/2023 Food Insecurity Answer Date Recorded Within the past 12 months, y ou worried that your food would run out before you got money to buy more: Often true 02/27/2023 Within the past 12 months,th e food you bought just didn't last and you didn't have enough money to get more: Often true Transportation Answer Date Recorded In the past 12 months, has l ack of transportation kept you from medical appts, meetings, work or from getting things needed for daily living? No 02/27/2023 Utilities Answer Date Recorded In the past 12 months, has t he electric, gas, oil or water company threatened to shut off services in your home? No 02/27/2023 Sex and Gender Information Value Date Recorded Sex Assigned at Male 12/10/2021 10:39 AM EDT Legal Sex Male 10:39 AM EDT Gender Identity Male 12/10/2021 10:39 AM EDT Sexual Orientation Choose not to disclose 2021 10:39 AM EDT documented as of this encounter Plan of Treatment Upcoming Encounters Date Type Department Care Team (Late st Contact Info) Description 09/24/2024 1:30 PM EDT Office Visit [facility] MEDICINE [address] [place] [address] Radha Zarco MD [address] [place] [address] documented as of this encounter Visit Diagnoses Not on filedocumented in this encounter Care Teams Elevator Examiner Relationship Specialty Start Date End Date Radha Zarco MD [address] [place] [address] PCP - General Family Medicine 10/31/22 [facility] 08/14/23 documented as of this encounter
[2024-08-27 12:08] LABS: Alanine Aminotransferase 27 U/L (0-40); Albumin Level 4.1 g/dL (3.5-5.0); Alkaline Phosphatase 80 U/L (39-117); Anion Gap 10 (12-20); Aspartate Amino Transferase 23 U/L (5-37); Blood Urea Nitrogen 18 mg/dL (9-16); Calcium 9.1 mg/dL (8.4-10.2); Carbon Dioxide 27 mmol/L (22-29); Chloride 104 mmol/L (96-108); Cholesterol 159 mg/dL (<200); Estimated Glomerular Filt Rate > 60; HDL Cholesterol 35 mg/dL (>40); Potassium 4.2 mmol/L (3.3-5.1); Sodium 137 mmol/L (135-145); Total Protein 7.2 g/dL (6.5-8.0); Triglycerides 100 mg/dL (<150)
[2024-08-27 13:54] LABS: Microalbum/Creatinine Ratio Ur 813.6 ug/mg cr (<30)
== END 2024-08-27 09:39 | disposition home or self-care (01) ==
LOC: HO.HHCL 09:38
PROVIDERS: PCP General Practice; Visit Provider General Practice
DX: E11.65 Type 2 diabetes mellitus with hyperglycemia (principal); Z79.4 Long term (current) use of insulin
CPT/HCPCS: 36415; 80053; 80061; 82043; 82570

== ENCOUNTER 2025-01-29 19:27 | Emergency (ER) | payer MEDICARE, MEDICAID, SELFPAY ==
[2025-01-29 19:34] VITALS: BP 200/110; PULSE 120; O2SAT 98
[2025-01-29 19:35] VITALS: BP 169/79; PULSE 109; RESP 20; TEMP 36.5; O2SAT 100; BMI 24.4
[2025-01-29 19:45] LABS: Glucose, Whole Blood 276 mg/dL (60-115)
[2025-01-29 19:49] VITALS: BP 169/79; PULSE 109; RESP 20; TEMP 36.5; O2SAT 100
--- NOTE | 2025-01-29 19:56 | PC.NURSE ---
Pt a&ox4, no signs of distress. Pt denies NKDA and pain at this time. Pts family at bedside Pts reported hx of stroke w/ right sided deficits uses cane to walk. Pt also reported he took both metformin and b/p med prior to ems arrival. Both have gone down since his arrival to ED Pt denies any other sx at this time Pt given urinal and call bed. Plan of care ongoing.
--- OUTSIDE RECORDS SUMMARY | 2025-01-29 20:36 | XMS_ITS | Encounter Summary ---
Author Organization [employer] Address [address] [place] [address] 7 [place] [address] Care Team Providers Care Supervisor Hospitality House Name Role Phone Radha Zarco MD Primary Care Provider [phone] Reason for Referral * Consultation (Routine) - Closed Specialty Diagnoses / Procedures Referred By Mari serrano Referred To Contact Occupational Therapy Diagnoses Sequela, post-stroke Right arm weakness Radha Zarco MD [address] [place] [address] Phone: tel: fax: [facility] Physical Therapy [address] [place] [address] Phone: tel: fax: Referral ID Status Reason Start Date Expiration Date V isits Requested Visits Authorized [id number] Closed Specialty Services Required 10/27/2023 10/26/2024 20 20 * Consultation (Routine) - Closed Specialty Diagnoses / Procedures Referred By Mari serrano Referred To Contact Physical Therapy Diagnoses Sequela, post-stroke Radha Zarco MD [address] [place] [address] Phone: tel: fax: [address] [address] Phone: tel: fax: Referral ID Status Reason Start Date Expiration Date V isits Requested Visits Authorized [id number] Closed Specialty Services Required 10/15/2023 10/14/2024 20 20 Encounter Details Date Type Department Care Team (Late Contact Info) Description 10/15/2023 Orders Only [facility] MEDICINE [address] [place] [address] Radha Zarco MD [address] [place] [phone] Right arm weakness (Primary Dx); Sequela, post-stroke Social History Tobacco Use Types Packs/Day Years Used Date Smoking Tobacco: Never Smokeless Tobacco: Never Alcohol Use Standard Drinks/Week Comments Yes 2 (1 standard drink = 0.6 oz pur e alcohol) Occasionally Housing Stability Answer Date Recorded What is your housing situation today? I have sukumarmarielena castañeda 02/27/[address] you li [...] the past 12 months, has t he [employer], gas, oil or water company threatened to [...] Encounters Date Type Department Care Team (Late Contact Info) Description 03/02/2025 2:45 PM EST Office Visit [facility] MEDICINE [address] [place] [address] Olga Lidia Ge FNP [address] [place], [place] [phone] Scheduled Referrals Name Type Priority Associated Diagnoses Order Schedule Referral to Physical Therapy Outpatient Referral Routine Sequela, post-stroke Expected: 10/15/2023 (Approximate), Expires: 10/14/2024 Referral to Occupational Therapy Outpatient Referral Routine Sequela, post-stroke Right arm weakness Expected: 10/22/2023 (Approximate), Expires: 10/21/2024 documented as of this encounter Visit Diagnoses Diagnosis Right arm weakness- Primary Other musculoskeletal symptoms referable to limbs Sequela, post-stroke documented in this encounter Care Teams Supervisor Hospitality House Relationship Specialty Start Date End Date Radha Zarco MD [address], [place] [phone] PCP - General Family Medicine 10/31/22 [facility] 08/14/23 documented as of this encounter
--- OUTSIDE RECORDS SUMMARY | 2025-01-29 20:36 | XMS_ITS | Clinical Summary ---
Author Organization [employer] Address [address] [place] [address] Care Team Providers Care Law Office Manager Name Role Phone Radha Zarco MD Primary Care Provider [phone] Allergies No known active allergies Medications Acetaminophen Extra Strength 500 MG tablet TAKE 2 TABLETS BY MOUTH DAILY IN THE MORNING 90 tablet 4 Active glucose blood (FREESTYLE LITE) test stripIndications: Type 2 diabetes mellitus without complication, without long-term current use of insulin ([facility]) Check blood sugar 3 times every day (fasting, after lunch, and at bedtime) 100 each 11 4 Active sertraline (Zoloft) 50 MG tablet Take 2 tablets by mouth Once per day. Active docusate sodium (Colace) 100 MG capsule Take 100 mg by mouth 2 times daily. 4 Active senna (Senokot) 8.6 MG tablet TAKE 2 TABLETS BY MOUTH EVERY DAY AT BEDTIME 4 Active albuterol (Ventolin HFA) 108 (90 Base) MCG/ACT inhaler Inhale 2 puffs every 6 (six) hours if needed for wheezing or shortness of breath. 18 g 11 4 Active tamsulosin (Flomax) 0.4 MG 24 hr capsule Take 1 capsule (0.4 mg) by mouth at bedtime. 90 capsule 3 4 Active methocarbamol (Robaxin) 500 MG tablet Take 1 tablet (500 mg) by mouth if needed in the morning and at bedtime for muscle spasms. 40 tablet 4 Active metFORMIN XR (Glucophage-XR) 500 MG 24 hr tabletIndications :Type 2 diabetes mellitus with hyperglycemia, with long-term current use of insulin ([facility]) Take 2 tablets (1,000 mg) by mouth 2 times daily. Do not crush, chew, or split. 360 tablet 3 5 Active pen needle 31G x 8 mm misc Use as instructed 100 each 12 5 03/10/19 26 Active Lancets 33G misc Please use to check BS daily as directed 100 each 5 Active Blood Glucose Monitoring Suppl (FreeStyle Lite) device Inject 1 each under the skin Use as directed. Use to check BS. 1 each 5 Active Blood Glucose Monitoring Suppl (FreeStyle [place] Lite) w/Device kit use as directed 5 Active fexofenadine (Bell) 180 MG tabletIndications :Allergic rhinitis due to other allergic trigger, unspecified seasonality Take 1 tablet (180 mg) by mouth if needed each day (Allergies). 90 tablet 3 5 05/24/19 26 Active amLODIPine (Norvasc) 5 MG tablet Take 1 tablet (5 mg) by mouth Once per day. 90 tablet 3 5 Active ARIPiprazole (Abilify) 10 MG tablet Take 1 tablet (10 mg) by mouth Once per day. 90 tablet 3 5 Active aspirin (Aspirin Low Dose) 81 MG chewable tabletIndications :Type 2 diabetes mellitus with hyperglycemia, with long-term current use of insulin ([facility]) Chew 1 tablet (81 mg) Once per day. 90 tablet 3 5 Active atorvastatin (Lipitor) 80 MG tabletIndications :Type 2 diabetes mellitus with hyperglycemia, with long-term current use of insulin ([facility]) Take 1 tablet (80 mg) by mouth Once per day. 90 tablet 3 5 Active Continuous Glucose Sensor (FreeStyle Naya 2 Sensor) miscIndications:T ype 2 diabetes mellitus with hyperglycemia, with long-term current use of insulin ([facility]) 1 each every 14 (fourteen) days. 2 each 12/23/2024 2:57 PM EST 5 Active empagliflozin (Jardiance) 25 MGIndications:Typ e 2 diabetes mellitus with hyperglycemia, with long-term current use of insulin ([facility]) Take 1 tablet (25 mg) by mouth Once per day. 90 tablet 3 01/21/2025 3:26 PM EST 5 Active glimepiride (Amaryl) 4 MG tablet Take 1 tablet (4 mg) by mouth before breakfast. 90 tablet 3 5 Active insulin glargine (Lantus) 100 UNIT/ML injectionIndicati ons:Type 2 diabetes mellitus with hyperglycemia, with long-term current use of insulin ([facility]) Inject 20 Units under the skin at bedtime. 15 mL 3 5 Active losartan (Cozaar) 50 MG tabletIndications :Primary hypertension Take 1 tablet (50 mg) by mouth Once per day. 90 tablet 3 5 05/29/19 26 Active camphor-menthol (Sarna) lotion Apply topically if needed for irritation. 222 mL 5 05/29/19 26 Active Continuous Glucose Signal [employer] Maintainer (VentarioStyle Naya 2 [place]) device 1 each Once per day. 1 each 5 Active Active Problems Problem Noted Date Diagnosed Date Foot drop, right 07/02/2024 Overview (07/02/2024): Secondary to stroke Assessment & Plan (07/02/2024 10:43 AM EDT): Will refer to podiatry for assistance with management and possible construction of a brace Allergic rhinitis 05/31/2024 Right arm weakness 10/22/2023 Other fatigue 09/12/2023 Assessment & Plan (09/15/2023 6:13 PM EDT): Possible sequela, labs as ordered below Dizziness 09/12/2023 Assessment & Plan (09/15/2023 6:13 PM EDT): Reports intermittent dizziness, potential side effect, labs as ordered below, Encouraged hydration, rtc if symptoms fail to improve with discontinue of flexeril Sequela, post-stroke 08/19/2023 Assessment & Plan (12/06/2024 12:38 PM EDT): Residual stroke deficits 09/11/23 Dr Stone, neurology f/u after stroke, recommended BP control, stop Baclofen start Tizanidine. Pt is not using muscle relaxer currently because he feels it contributes to cramping of his muscles at night Attends [facility] at [address] [place] [address] for ongoing rehab, for right sided deficits Patient ambulates with wheelchair, as he is not independently mobile due to residual right sided deficits, needs replacement wheelchair due to damage to current wheelchair DME sent for replacement wheelchair so that patient can safely ambulate in his current physical condition Assessment & Plan (09/15/2023 6:13 PM EDT): Physical therapy referral changed per pt request Assessment & Plan (08/19/2023 7:58 AM EDT): He has residual R sided deficits of motor function Will have home PT soon Will await recommendations from them for DME ordering Refer to neurology for coordination of care Muscle spasm of right leg 08/19/2023 Food insecurity 03/06/2023 Anxiety 07/12/2022 Assessment & Plan (03/10/2023 8:19 AM EST): Increase Zoloft to 50mg daily beginning tx with Dr Cartagena, psychiatry Assessment & Plan (07/12/2022 12:45 PM EDT): Due to this patients chronic KARINA and fear of any medication that will be sedating on his respiratory system, I felt like Sertraline was a good start for managing his anxiety. Starting Sen on sertraline 25 mg PO every day, today. He has an appointment in one month to f/up for anxiety and HTN. Explained side effects of sertraline. Diabetic retinopathy 07/26/2021 Hypertensive disorder 03/11/2021 Assessment & Plan (05/31/2024 4:11 PM EDT): Enforced idea that lack of compliance with medications could lead to dangerous complications such as such as repeat stroke or heart attack He is concerned about side effects of medications though Assessment & Plan (03/09/2024 1:40 PM EST): Enforced idea that lack of compliance with medications could lead to dangerous complications such as such as repeat stroke or heart attack Assessment & Plan (08/31/2023 1:31 PM EDT): Maintenance: Amlodipine 5mg, Losartan 25mg. Can titrate Losartan based on patient's home BP log BMP: Lab Results Component Value Date CREATININE 1.39 03/06/2023 Lipid Panel: Lab Results Component Value Date LDLCHOL 141 (H) 11/13/2021 ASCVD Risk: 21.5% for 10 year risk EKG: Obtain baseline at f/u - Aerobic exercise to reduce BP. Initial goal of 30 min walk 3-5x/week. Increase as tolerated. - low-sodium diet (goal: <2g/day) and heart healthy diet such as DASH to reduce BP and prevent ASCVD. - Home BP monitoring 1-2 x day with goal of <140/90. - Seek immediate medical attention for chest pain, palpitations, SOB, syncope, or sudden changes in mental status. - Do not change or discontinue current prescriptions without first consulting health care provider Assessment & Plan (08/19/2023 7:57 AM EDT): Maintenance: Amlodipine 5mg, Losartan 25mg. Can titrate Losartan based on patient's home BP log BMP: Lab Results Component Value Date CREATININE 1.39 03/06/2023 Lipid Panel: Lab Results Component Value Date LDLCHOL 141 (H) 11/13/2021 ASCVD Risk: 21.5% for 10 year risk EKG: Obtain baseline at f/u - Aerobic exercise to reduce BP. Initial goal of 30 min walk 3-5x/week. Increase as tolerated. - low-sodium diet (goal: <2g/day) and heart healthy diet such as DASH to reduce BP and prevent ASCVD. - Home BP monitoring 1-2 x day with goal of <140/90. - Seek immediate medical attention for chest pain, palpitations, SOB, syncope, or sudden changes in mental status. - Do not change or discontinue current prescriptions without first consulting health care provider Assessment & Plan (03/10/2023 8:21 AM EST): Maintenance: Amlodipine 5mg, will add low dose ACEi if BP consistently >140/90 BMP: Lab Results Component Value Date CREATININE 1.39 03/06/2023 Lipid Panel: Lab Results Component Value Date LDLCHOL 141 (H) 11/13/2021 ASCVD Risk: 21.5% for 10 year risk EKG: Obtain baseline at f/u - Aerobic exercise to reduce BP. Initial goal of 30 min walk 3-5x/week. Increase as tolerated. - low-sodium diet (goal: <2g/day) and heart healthy diet such as DASH to reduce BP and prevent ASCVD. - Home BP monitoring 1-2 x day with goal of <140/90. - Seek immediate medical attention for chest pain, palpitations, SOB, syncope, or sudden changes in mental status. - Do not change or discontinue current prescriptions without first consulting health care provider Assessment & Plan (07/12/2022 12:47 PM EDT): The 10-year ASCVD risk score (Rex VINCENT, et al., 2019) is: 18% Values used to calculate the score: Age: 57 years Sex: Male Is Non- : No Diabetic: Yes Tobacco smoker: No Systolic Blood Pressure: 159 mmHg Is BP treated: No HDL Cholesterol: 43 mg/dL Total Cholesterol: 211 mg/dL Ordering new lipid panel. I called the pharmacy and they told me that he had not refilled his medications in a month. I discussed this with him and he knows that he has to take them as prescribed. I requested that he restart the medications that he was already prescribed that he hasnt filled for a month. He struggles with medication compliance and has multiple no shows. We will discuss starting atorvastatin at his next visit. Try to add another medication at this visit would be a bad idea at this point. He does not like taking medications as is and I am trying to get his BP and A1C stable as his priorities. Intermittent asthma 03/11/2021 Assessment & Plan (03/10/2023 8:16 AM EST): Continue DU prn Inter-related with potential allergies as well, take Bell daily (dc Zyrtec) and Benadryl prn Type 2 diabetes mellitus wit h hyperglycemia, with long-term current use of insulin 03/11/2021 Assessment & Plan (12/06/2024 12:39 PM EDT): Eating rice and carbs, has trouble buying healthier foods Continue using continuous glucose monitor Lab Results Component Value Date HGBA1C 10.3 (A) 05/28/2024 HGBA1C 10.3 (A) 03/03/2024 HGBA1C 9.4 (H) 09/12/2023 HGBA1C 13.5 (A) 03/06/2023 HGBA1C 12.9 (H) 11/13/2021 Does not like taking 1000mg of Metformin, thinks it is too high Uses Lantus 15 units at night Continue Jardiance 25mg, Amaryl 4mg 07/25/23 podiatry consult Assessment & Plan (05/31/2024 4:13 PM EDT): Current A1c: 10.3 Recommend Metformin at 1000mg BID, continue Jardiance 25mg and Glimiperide 4mg - add Lantus 15 units nightly - CGM Naya 2 ordered Discussed role of DM2 pharmacist, as patient's ongoing uncontrolled and untreated blood sugars place him at high risk for complications. Patient and are reluctant to intensify treatment despite explanation that high sugars are partially responsible for patient's stroke and could cause other complications BMP: Cr 1.39 Microalbumin: Lab Results Component Value Date MICROALBUR 238.0 09/12/2023 Foot Exam: DUE Eye Exam: in 08/2023 with DM retinopathy Lipid panel: s/p stroke ASCVD: 21.5% Statin: Yes ASA: Yes MARCIA/ARB: Yes, Losartan Encouraged regular aerobic exercise for improved glycemic control Encouraged daily foot checks Encouraged lean protein snacks and to avoid foods high in sugar and simple carbohydrates Treatment Goals: A1c goal: <7% FBG goal: <130 2 hour post prandial goal: <180 Assessment & Plan (03/09/2024 1:43 PM EST): Current A1c: 10.3 Continue Metformin at 1000mg BID, continue Jardiance 25mg and Glimiperide 4mg - add Lantus 15 units nightly - CGM Naya 2 ordered refer to DM2 pharmacist as patient and are reluctant to intensify treatment despite explanation that high sugars are partially responsible for patient's stroke and could cause other complications BMP: Cr 1.39 Microalbumin: Lab Results Component Value Date MICROALBUR 238.0 09/12/2023 Foot Exam: DUE Eye Exam: in 08/2023 with DM retinopathy Lipid panel: s/p stroke ASCVD: 21.5% Statin: Yes ASA: Yes MARCIA/ARB: Yes, Losartan Encouraged regular aerobic exercise for improved glycemic control Encouraged daily foot checks Encouraged lean protein snacks and to avoid foods high in sugar and simple carbohydrates Treatment Goals: A1c goal: <7% FBG goal: <130 2 hour post prandial goal: <180 Assessment & Plan (08/31/2023 1:32 PM EDT): Current A1c: 9.8 Continue Metformin at 1000mg BID, continue Jardiance 25mg and Glimiperide 4mg - refer to DM2 nurse educator as patient and are reluctant to intensify treatment despite explanation that high sugars are partially responsible for patient's stroke and could cause other complications BMP: Cr 1.39 Microalbumin: Lab Results Component Value Date MICROALBUR 305.0 03/06/2023 Foot Exam: DUE Eye Exam: in 2022 with DM retinopathy, due Lipid panel: s/p stroke ASCVD: 21.5% Statin: Yes ASA: Yes MARCIA/ARB: Yes, Losartan Encouraged regular aerobic exercise for improved glycemic control Encouraged daily foot checks Encouraged lean protein snacks and to avoid foods high in sugar and simple carbohydrates Treatment Goals: A1c goal: <7% FBG goal: <130 2 hour post prandial goal: <180 Assessment & Plan (08/19/2023 8:05 AM EDT): Current A1c: 9.8 INCREASE Metformin back to 1000mg BID, continue Jardiance 25mg and Glimiperide 4mg - refer to DM2 nurse educator as patient and are reluctant to intensify treatment despite explanation that high sugars are partially responsible for patient's stroke and could cause other complications BMP: Cr 1.39 Microalbumin: Lab Results Component Value Date MICROALBUR 305.0 03/06/2023 Foot Exam: DUE Eye Exam: in 2022 with DM retinopathy, due Lipid panel: s/p stroke ASCVD: 21.5% Statin: Not yet, ordered today ASA: Yes MARCIA/ARB: No Encouraged regular aerobic exercise for improved glycemic control Encouraged daily foot checks Encouraged lean protein snacks and to avoid foods high in sugar and simple carbohydrates Treatment Goals: A1c goal: <7% FBG goal: <130 2 hour post prandial goal: <180 Assessment & Plan (03/10/2023 8:20 AM EST): Current A1c: 13.5 BMP: Cr 1.39 Microalbumin: DUE Foot Exam: DUE Eye Exam: Discuss at follow up Lipid panel: done today ASCVD: 21.5% Statin: Not yet, ordered today ASA: Yes MARCIA/ARB: No Encouraged regular aerobic exercise for improved glycemic control Encouraged daily foot checks Encouraged lean protein snacks and to avoid foods high in sugar and simple carbohydrates Treatment Goals: A1c goal: <7% FBG goal: <130 2 hour post prandial goal: <180 Assessment & Plan (07/12/2022 12:42 PM EDT): A1C today is 12. Sen does not like needles. The likelyhood of getting him to start insuline and adhere to its multiple laws injections is low. I was able to persuade him into one weekly sub Q injection of trulicity. I believe this medication will be the best for Sen due to his medication adherence issues. I did not want to add multiple laws injections or too many more pills. Hyperlipidemia 05/10/2014 Assessment & Plan (08/19/2023 7:58 AM EDT): Continue Atorvastatin 80mg daily Encounters Date Type Department Care Team Description 01/18/[address] [phone] Radha Zarco MD chart prep 01/10/2025 Patient Outreach [address] [address] Radha Zarco MD Pre-visit Planning ((Unable to reach for PVP screening and or LVM) to be completed in office) 11/17/[address] [address] Radha Zarco MD Durable Medical Equipment (DME: Replacement Manual Wheelchair) 11/09/[address] Appointment Request 11/08/2024 Telephone [facility] MED[facility] [address] [place] [address] Nutrition referral from Last 3 Months Immunizations Immunization Administration Dates Next Due PPD Test 01/17/2020 Social History Tobacco Use Types Packs/Day Years Used Date Smoking Tobacco: Former Cigarettes Passive Smoke Exposure: Past Smokeless Tobacco: Never Alcohol Use Standard Drinks/Week Comments Yes 2 (1 standard drink = 0.6 oz pur e alcohol) Occasionally Depression Answer Date Recorded Patient Health Questionnaire-9 Score 0 05/28/2024 Patient Health Questionnaire-9 Score 0 05/28/2024 Last PHQ-9: Questionnaire Data Not on file 0 05/28/2024 Housing Stability Answer Date Recorded What is your housing situation today? I have sukumarmarielena castañeda 03/03/[address] you li ve. Do you have problems with any of the following? None of the above 03/03/2024 Food Insecurity Answer Date Recorded Within the past 12 months, y ou worried that your food would run out before you got money to buy more: Sometimes True 2024 Within the past 12 months,th e food you bought just didn't last and you didn't have enough money to get more: Sometimes True 03/03/2024 Transportation Answer Date Recorded In the past 12 months, has l ack of transportation kept you from medical appts, meetings, work or from getting things needed for daily living? No 03/03/2024 Utilities Answer Date Recorded In the past 12 months, has t he electric, gas, oil or water company threatened to shut off services in your home? No 03/03/2024 Depression Answer Date Recorded Patient Health Questionnaire-2 Score 0 05/28/2024 Internet Access Answer Date Recorded Internet Access Q1 Yes 03/03/2024 Internet Access Q2 Not on file 03/03/2024 Sex and Gender Information Value Date Recorded Sex Assigned at Male 12/10/2021 10:39 AM EDT Legal Sex Male 10:39 AM EDT Gender Identity Male 12/10/2021 10:39 AM EDT Sexual Orientation Choose not to disclose 2021 10:39 AM EDT Last Filed Vital Signs Vital Sign Reading Time Taken Comments Blood Pressure 134/78 09/24/2024 1:00 PM EDT Pulse 92 09/24/2024 12:46 PM EDT Temperature 36.1 C (97 F) 09/24/2024 12:46 PM EDT Respiratory Rate 20 09/24/2024 12:46 PM EDT Oxygen Saturation 99% 03/03/2024 4:00 PM EST Inhaled Oxygen Concentration - - Weight 68 kg (150 lb) 09/24/2024 12:46 PM EDT Height 170.2 cm (5' 7 ) 09/24/2024 12:46 PM EDT Body Mass Index 23.49 09/24/2024 12:46 PM EDT Plan of Treatment Upcoming Encounters Date Type Department Care Team (Late st Contact Info) Description 03/02/2025 2:45 PM EST Office Visit [facility] MED[facility]INE [address] [place], [place] [id number] Olga Lidia Ge FNP [address] [place], [place] [phone] Health Maintenance Due Date Last Done Comments CT Colonography 1967 Colonoscopy 1967 Dental Oral Exam 1967 Dental Prophylaxis 1967 Dental X-Ray: Bitewings 1967 FIT DNA/Cologuard 1967 FIT 1967 FOBT 1967 Sigmoidoscopy 1967 Alcohol/Substance Use Screening 1979 DTaP/Tdap/Td Vaccines (1 - Tdap) 1986 Hepatitis B Vaccines (1 of 3 - 19+ 3-dose series) 1986 Pneumococcal Vaccine: 50+ Years (1 of 2 - PCV) 1986 RSV Patients and Patients Aged 60 years or older (1 - Risk 50-74 years 1-dose series) 2017 Zoster Vaccines (1 of 2) 2017 Diabetes: Foot Exam 08/10/2024 08/11/2023 Diabetes: Hemoglobin A1C 08/27/2024 025, 03/03/2024, 09/12/2023, Additional history exists Eye Exam 08/31/2024 09/01/2023, 08/11, 09/01/2023, Additional history exists COVID-19 Vaccine ( season) 2024 Influenza Vaccine (#1) 2024 SDOH Screening 03/03/2025 03/03/2024 Depression Screening 05/28/2025 05/28/2024, 05/29/19 Disability Screening 05/28/2025 05/28/2024 Colorectal Cancer Screening 05/31/2025 Postponed from 1967 (Patient Refused) Diabetes: Urine Protein Screening 08/27/2025 08/27/2024, 09/12/2023, 03/06/2023, Additional history exists Lipid Panel 08/27/2025 08/27/2024, 03/2023, 03/06/2023, Additional history exists Tobacco Screening 09/28/2025 09/28/2024 Dental X-Ray: Full Mouth 04/05/2026 04/04/2023 HIV Screening Completed 11/13/2021 Hepatitis C Screening Completed 11/13/2021 HIB Vaccines Aged Out [...] patient's age to complete this topic Meningococcal Vaccine Aged Out No ricardo jose f eligible based on patient's age to complete this topic RSV under 20 months Aged Out No longe r eligible based on patient's age to complete this topic Rotavirus Vaccines Aged Out No longer eligible based on patient's age to complete this topic Goals Goal Patient Goal Type Associated Problems Recent Progress Patient-Stated? Author Help patients manage their type 2 diabetes Care Plan Help patients manage their type 2 diabetes Sarah Tomas Weekly blood pressure task Care Plan Weekly blood pressure task Sarah Tomas Help patients manage their type 2 diabetes Care Plan Help patients manage their type 2 diabetes Sarah Tomas Patient has diabetic eye disease Care Plan Patient has diabetic eye disease Sarah Tomas Help patients manage their type 2 diabetes Care Plan Help patients manage their type 2 diabetes Sarah Tomas Patient has chronic kidney disease Care Plan Patient has chronic kidney disease No Sarah Oneal Weekly blood pressure task Care Plan Weekly blood pressure task No Sarah Oneal Weekly blood pressure task Care Plan Weekly blood pressure task No Sarah Oneal Patient has diabetic eye disease Care Plan Patient has diabetic eye disease No Sarah Oneal Patient has diabetic eye disease Care Plan Patient has diabetic eye disease No Sarah Oneal Patient has chronic kidney disease Care Plan Patient has chronic kidney disease No Sarah Oneal Patient has chronic kidney disease Care Plan Patient has chronic kidney disease No Sarah Oneal Weekly blood pressure task Care Plan Weekly blood pressure task No Babatunde Finn MA Weekly blood pressure task Care Plan Weekly blood pressure task No Babatunde Finn MA Weekly blood pressure task Care Plan Weekly blood pressure task No Babatunde Finn MA Patient has diabetic eye disease Care Plan Patient has diabetic eye disease No Babatunde Finn MA Patient has diabetic eye disease Care Plan Patient has diabetic eye disease No Babatunde Finn MA Patient has diabetic eye disease Care Plan Patient has diabetic eye disease No Babatunde Finn MA Patient has chronic kidney disease Care Plan Patient has chronic kidney disease No Babatunde Finn MA Patient has chronic kidney disease Care Plan Patient has chronic kidney disease No Babatunde Finn MA Patient has chronic kidney disease Care Plan Patient has chronic kidney disease No Babatunde Finn MA Weekly blood pressure task Care Plan Weekly blood pressure task No Radha Zarco MD Weekly blood pressure task Care Plan Weekly blood pressure task No Radha Zarco MD Weekly blood pressure task Care Plan Weekly blood pressure task No Radha Zarco MD Patient has diabetic eye disease Care Plan Patient has diabetic eye disease No Radha Zarco MD Patient has diabetic eye disease Care Plan Patient has diabetic eye disease No Radha Zarco MD Patient has diabetic eye disease Care Plan Patient has diabetic eye disease No Radha Zarco MD Patient has chronic kidney disease Care Plan Patient has chronic kidney disease No Radha Zarco MD Patient has chronic kidney disease Care Plan Patient has chronic kidney disease No Radha Zarco MD Patient has chronic kidney disease Care Plan Patient has chronic kidney disease No Radha Zarco MD Procedures Procedure Name Priority Date/Time Associated Diagnosis Comments ALBUMIN, RANDOM URINE W/CREATININE Routine 08/27/2024 11:18 AM EDT Type 2 diabetes mellitus with hyperglycemia, with long-term current use of insulin (CMS/HCC) LIPID PANEL, STANDARD Routine 08/27/2024 9:42 AM EDT Type 2 diabetes mellitus with hyperglycemia, with long-term current use of insulin (CMS/HCC) POCT GLYCATED HEMOGLOBIN, TOTAL Routine 05/28/2024 9:21 AM EDT Type 2 diabetes mellitus with hyperglycemia, with long-term current use of insulin (CMS/HCC) ZZZ HISTORICAL HEPATITIS C AB W/REFL TO HCV RNA, QN, PCR Routine 11/13/2021 11:29 AM EDT HIV 1/2 ANTIGEN/ANTIBODY, FOURTH GENERATION W/RFL Routine 11/13/2021 11:29 AM EDT from Last 3 Months or Most Recently Relevant to Health Maintenance Results * (ABNORMAL) Albumin, Random Urine W/Creatinine (08/27/2024 11:18 AM EDT) Creatinine, Urine 73.13 mg/dL [facility] Microalbumin Urine 595.0 mg/L [facility] Microalbum Creatinine Ratio Ur 813.6(H) <30 ug/mg cr [facility] Comment:Albumin/Creatinine R atio Reference Ranges: Normal: < 30 ug/mg creatinine Microalbuminuria: 30 - 300 ug/mg creatinineClinical Albuminuria: > 300 ug/mg creatinine Urine (Urine, Random) 08/27/2024 11:18 AM EDT 08/27/2024 12:47 PM EDT us Radha Zarco MD LAB URINE ORDERABLES Final Res ult [facility] [address] [place] [phone] * (ABNORMAL) Lipid Panel, Standard (08/27/2024 9:42 AM EDT) Triglycerides 100 <150 mg/dL [facility] Comment:Desirable Triglyceri de: less than 150 mg/dLBorderline High Triglyceride 150-199 mg/dLHigh Triglyceride: 200-499 mg/dLVery High Triglyceride: greater than or equal to 5OO mg/dL Cholesterol 159 <200 mg/dL [facility] Comment:Desirable Cholestero l: less than 200 mg/dLBorderline High Cholesterol: 200-239 mg/dLHigh Cholesterol: greater than 239 mg/dL LDL Cholesterol Calculated 104(H) <100 mg/dL [facility] Comment:Desirable LDL: less than 100 mg/dLNear Optimal/Above Optimal LDL: 110- 129 mg/dLBorderline High LDL: 130-159 mg/dLHigh LDL: 160-189 mg/dLVery High LDL: greater than or equal to 190 mg/dL HDL Cholesterol 35(L) >40 mg/dL [facility] Comment:Desirable HDL: great er than 40 mg/dL Note: This HDL assay may give artificially low results in patients with liver disease. Blood Venous blood specimen / Unknown 08/27/2024 9:42 AM EDT 08/27/2024 11:27 AM EDT Radha Zarco MD LAB BLOOD ORDERABLES Final Res ult [facility] [address] [place] [address] [phone] * (ABNORMAL) POCT HGB A1C (05/28/2024 9:21 AM EDT) Hemoglobin A1C 10.3(A) 4.0 - 6.0 % QC Media Lot # [id number] Lot# Expiration Date Blood 05/28/2024 9:21 AM EDT Radha Zarco MD POINT OF CARE TEST ENTER/EDIT ORDERABLES Final Result * HEPATITIS C AB W/REFL TO HCV RNA, QN, PCR (11/13/2021 11:29 AM EDT) HEPATITIS C ANTIBODY NON-REACTI VE NON-REACT TOM [facility] INDEX 0.08 <1.00 [facility] Comment: HCV antibody was non-reactive. There is no laboratory evidence of HCV infection. In most cases, no further action is required. However, if recent HCV exposure is suspected, a test for HCV RNA (test code 12259) is suggested. For additional information please refer to http://[employer]/faq/SYC07l8 (This link is being provided for informational/ educational purposes only.) 11/13/2021 11:2 9 AM EDT us Alexa [facility] HISTORICAL/NON ORDERABLE LABS Final Result Performing Organization Address [facility] de Phone Number [facility]VERT[facility]GACY LAB[facility] * HIV 1/2 ANTIGEN/ANTIBODY,FOURTH GENERATION W/RFL (11/13/2021 11:29 AM EDT) HIV-1/2 ANTIGEN AND ANTIBODIES, 4TH GENERATION W/ REFLEX NON-REACT TOM NON-REACT TOM [facility] Comment: HIV-1 antigen and HIV-1/HIV-2 antibodies were not detected. There is no laboratory evidence of HIV infection. PLEASE NOTE: This information has been disclosed to you from records whose confidentiality may be protected by state law. If your state requires such protection, then the state law prohibits you from making any further disclosure of the information without the specific written consent of the person to whom it pertains, or as otherwise permitted by law. A general authorization for the release of medical or other information is NOT sufficient for this purpose. For additional information please refer to http://[employer]/faq/QAP282 (This link is being provided for informational/ educational purposes only.) The performance of this assay has not been clinically validated in patients less than 2 years old. 11/13/2021 11:2 9 AM EDT us Alexa [facility] LAB BLOOD ORDERABLES Final Res ult [facility] from Last 3 Months or Most Recently Relevant to Health Maintenance Additional Health Concerns Active Problems Noted Date Diagnosed Date Help patients manage their type 2 diabetes 01/10 Weekly blood pressure task 01/10/2025 Help patients manage their type 2 diabetes 01/10 Patient has diabetic eye disease 01/10/2025 Help patients manage their type 2 diabetes 01/10 Patient has chronic kidney disease 01/10/2025 Weekly blood pressure task 01/10/2025 Weekly blood pressure task 01/10/2025 Patient has diabetic eye disease 01/10/2025 Patient has diabetic eye disease 01/10/2025 Patient has chronic kidney disease 01/10/2025 Patient has chronic kidney disease 01/10/2025 Weekly blood pressure task 01/18/2025 Weekly blood pressure task 01/18/2025 Weekly blood pressure task 01/18/2025 Patient has diabetic eye disease 01/18/2025 Patient has diabetic eye disease 01/18/2025 Patient has diabetic eye disease 01/18/2025 Patient has chronic kidney disease 01/18/2025 Patient has chronic kidney disease 01/18/2025 Patient has chronic kidney disease 01/18/2025 Weekly blood pressure task 01/19/2025 Weekly blood pressure task 01/19/2025 Weekly blood pressure task 01/19/2025 Patient has diabetic eye disease 01/19/2025 Patient has diabetic eye disease 01/19/2025 Patient has diabetic eye disease 01/19/2025 Patient has chronic kidney disease 01/19/2025 Patient has chronic kidney disease 01/19/2025 Patient has chronic kidney disease 01/19/2025 Insurance MEDICARE [facility] STANDARD DENTAL-[facility] MEDICAID STAND ADULT Advance Directives Documents on File Type Date Recorded 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
--- OUTSIDE RECORDS SUMMARY | 2025-01-29 20:36 | XMS_ITS | Encounter Summary ---
Author Organization [employer] Address [address] [facility] 7t [place] [address] Care Team Providers Care Flake Drier Name Role Phone Radha Zarco MD Primary Care Provider [phone] Reason for Visit * Reason Onset Date Comments PT1 07/20/2024 Encounter Details Date Type Department Care Team ([facility] Contact Info) Description 07/20/2024 Telephone [facility] [address] [place] [address] Radha Zarco MD [address] [place] [address] PT1 Social History Tobacco Use Types Packs/Day Years [...] your housing situation today? I have sukumar castañeda 03/03/[address] you [...] AM EDT documented as of this encounter Miscellaneous Notes * Telephone Encounter - Natalie Kilgore - 07/20/2024 9:42 AM EDT Patient calling requesting PT1 Home Address verified: Y/N: Yes Provider name or facility name: [address] [place] [address] [facility] Escort needed: Y/N: Yes Do you have a wheelchair: Y/N: Yes If yes- Manual or electric: Manual Visits: (2x weekly) Patient calling requesting PT1 Home Address verified: Y/N: Yes Provider name or facility name: [address] [place] [id number] Escort needed: Y/N: Yes Do you have a wheelchair: Y/N: Yes If yes- Manual or electric: Manual Visits: (3x monthly) Patient calling requesting PT1 Home Address verified: Y/N: Yes Provider name or facility name: [facility] - [address] [facility] [address] Escort needed: Y/N: Yes Do you have a wheelchair: Y/N: Yes If yes- Manual or electric: Manual Visits: (2x monthly) documented in this encounter Plan of Treatment Upcoming Encounters Date Type Department Care Team (Late st Contact Info) Description 03/02/2025 2:45 PM EST Office Visit [facility] [address] [place] [address] Olga Lidia Ge FNP [address] [place] [address] documented as of this encounter Visit Diagnoses Not on filedocumented in this encounter Additional Health Concerns Assessment Noted Time PHQ-9 Depression Total Score: 0 05/29/19 25 9:15 AM EDT documented as of this encounter Care Teams Flake Drier Relationship Specialty Start Date End Date Radha Zarco MD [address] [place] [address] PCP - General Family Medicine 10/31/22 [facility] 08/14/23 documented as of this encounter
--- OUTSIDE RECORDS SUMMARY | 2025-01-29 20:36 | XMS_ITS | Encounter Summary ---
Author Organization [employer] Address [address] [place] [address] [address], [place] [address] Care Team Providers Care Percolator Operator Name Role Phone Radha Zarco MD Primary Care Provider [phone] Reason for Referral * Consultation (Routine) - Closed Specialty Diagnoses / Procedures Referred By Mari serrano Referred To Contact Occupational Therapy Diagnoses Sequela, post-stroke Radha Zarco MD [address] [place], [place] Phone: tel: fax: Outpatient @ [facility] [address] Phone: tel: fax: Referral ID Status Reason Start Date Expiration Date V isits Requested Visits Authorized [id number] Closed Specialty Services Required 02/17/2024 02/16/2025 20 20 * Consultation (Routine) - Closed Specialty Diagnoses / Procedures Referred By Mari serrano Referred To Contact Physical Therapy Diagnoses Sequela, post-stroke Radha Zarco MD [address] [place] [address] Phone: tel: fax: [facility] [address] Phone: tel: fax: Referral ID Status Reason Start Date Expiration Date V isits Requested Visits Authorized [id number] Closed Specialty Services Required 02/17/2024 02/16/2025 20 20 * Consultation (Routine) - Closed Specialty Diagnoses / Procedures Referred By Mari t Referred To Contact Physical Therapy Diagnoses Sequela, post-stroke Radha Zarco MD [address] [place] [address] Phone: tel: fax: [facility] 175 [facility] [address] [place] [address] Phone: tel: fax: Referral ID Status Reason Start Date Expiration Date V isits Requested Visits Authorized [id number] Closed Specialty Services Required 02/17/2024 02/16/2025 20 20 Encounter Details Date Type Department Care Team (Late st Contact Info) Description 02/17/2024 Orders Only [facility] [address] [place] [address] Radha Zarco MD [address] [place] [address] Sequela, post-stroke (Primary Dx) Social History Tobacco Use Types Packs/Day Years Used Date Smoking Tobacco: Former Cigarettes Smokeless Tobacco: Never Alcohol Use Standard Drinks/Week Comments Yes 2 (1 standard drink = 0.6 oz pur e alcohol) Occasionally Housing Stability Answer Date Recorded What is your housing situation today? I have sukumar castañeda 02/27/[address] you [...] Description 03/02/2025 2:45 PM EST Office Visit [facility] [address] [place], [place] [phone] Olga Lidia Ge FNP [address] [place], [place] [phone] Scheduled Referrals Name Type Priority Associated Diagnoses Order Schedule Referral to Physical Therapy Outpatient Referral Routine Sequela, post-stroke Expected: 02/17/2024 (Approximate), Expires: 02/16/2025 Referral to Occupational Therapy Outpatient Referral Routine Sequela, post-stroke Expected: 02/17/2024 (Approximate), Expires: 02/16/2025 documented as of this encounter Procedures Procedure Name Priority Date/Time Associated Diagnosis Comments AMB REFERRAL TO PHYSICAL THERAPY Routine 02/16/19 25 Sequela, post-stroke documented in this encounter Results * Referral to Physical Therapy (02/17/2024) Radha Zarco MD OUTPATIENT REFERRAL ORDERABLES Final Result documented in this encounter Visit Diagnoses Diagnosis Sequela, post-stroke- Primary documented in this encounter Care Teams Percolator Operator Relationship Specialty Start Date End Date Radha Zarco MD [address] [place], [place] [phone] PCP - General Family Medicine 10/31/22 [facility] 08/14/23 documented as of this encounter
--- OUTSIDE RECORDS SUMMARY | 2025-01-29 20:36 | XMS_ITS | Encounter Summary ---
Author Organization [employer] Address [address] [facility] [address] 7t [place] [address] Care Team Providers Care Machine Fixer Name Role Phone Radha Zarco MD Primary Care Provider [phone] Encounter Details Date Type Department Care Team ([facility] st Contact Info) Description 03/11/2024 Orders Only [facility] [address] [place] [address] Radha Zarco MD [address] [place], [place] [phone] Social History Tobacco Use Types Packs/Day Years Used Date Smoking Tobacco: Former Cigarettes Smokeless Tobacco: Never Alcohol Use Standard Drinks/Week Comments Yes 2 (1 standard drink = 0.6 oz pur e alcohol) Occasionally Depression Answer Date Recorded Patient Health Questionnaire-9 Score 0 03/03/2024 Patient Health Questionnaire-9 Score 0 03/03/2024 Last PHQ-9: Questionnaire Data Not on file 0 03/03/2024 Housing Stability Answer Date Recorded What is [...] Date Recorded Patient Health Questionnaire-2 Score 0 03/03/2024 Internet Access Answer Date Recorded Internet Access [...] 2:45 PM EST Office Visit [facility] [address] [place] [address] Olga Lidia Ge FNP [address] [place] [address] documented as of this encounter Visit Diagnoses Not on filedocumented in this encounter Additional Health Concerns Assessment Noted Time PHQ-9 Depression Total Score: 0 03/03/19 25 4:01 PM EST documented as of this encounter Care Teams Machine Fixer Relationship Specialty Start Date End Date Radha Zarco MD [address] [place] [address] PCP - General Family Medicine 10/31/22 [employer] [facility] 08/14/23 documented as of this encounter
--- OUTSIDE RECORDS SUMMARY | 2025-01-29 20:36 | XMS_ITS | Encounter Summary ---
Author Organization [employer] Address [address] [facility] 7t [place] [address] Care Team Providers Care Automotive Diagnostic Technician Name Role Phone Radha Zarco MD Primary Care Provider [phone] Reason for Referral * Consultation (Routine) - Canceled Specialty Diagnoses / Procedures Referred By Mari t Referred To Contact Pharmacy Diagnoses Primary hypertension Radha Zarco MD [address] [place] [address] Phone: tel: fax: Referral ID Status Reason Start Date Expiration Date V isits Requested Visits Authorized [id number] Canceled Continuity of Care 04/05/2024 04/05/2025 6 6 Encounter Details Date Type Department Care Team ([facility] st Contact Info) Description 04/05/2024 Orders Only [facility] [address] [place], [place] [phone] Radha Zarco MD [address] [place], [place] [phone] Primary hypertension (Primary Dx) Social History Tobacco Use Types [...] Description 03/02/2025 2:45 PM EST Office Visit [facility] [address] [place] [address] Olga Lidia Ge FNP [address] [place] [address] Scheduled Referrals Name Type Priority Associated Diagnoses Orde r Schedule Referral to Pharmacy MTM Outpatient Referral Routine Primary hypertension Ordered: 04/05/2024 documented as of this encounter Visit Diagnoses Diagnosis Primary hypertension- Primary Unspecified essential hypertension documented in this encounter Additional Health Concerns Assessment Noted Time PHQ-9 Depression Total Score: 0 03/03/19 25 4:01 PM EST documented as of this encounter Care Teams Automotive Diagnostic Technician Relationship Specialty Start Date End Date Radha Zarco MD [address] [place] [address] PCP - General Family Medicine 10/31/22 [facility] 08/14/23 documented as of this encounter
--- OUTSIDE RECORDS SUMMARY | 2025-01-29 20:36 | XMS_ITS | Encounter Summary ---
Author Organization [employer] Address [address] [facility] 7 [place] [address] Care Team Providers Care Marble Mechanic Helper Name Role Phone Radha Zarco MD Primary Care Provider Reason for Referral * Consultation (Routine) - Canceled Specialty Diagnoses / Procedures Referred By Mari serrano Referred To Contact Podiatry Diagnoses Foot-drop, unspecified laterality Radha Zarco MD [address] [place] [address] Phone: tel: fax: Referral ID Status Reason Start Date Expiration Date Visits Requested Visits Authorized [id number] Canceled Specialty Services Required 06/28/2024 06/28/2025 1 1 Encounter Details Date Type Department Care Team ([facility] st Contact Info) Description 06/28/2024 Orders Only [facility] [address] [place] [address] [phone] Radha Zarco MD [address] [place] [address] [phone] Foot-drop, unspecified laterality (Primary Dx) Social History Tobacco Use Types [...] Description 03/02/2025 2:45 PM EST Office Visit [facility] [address] [place] [address] Olga Lidia Ge FNP [address] [place] [address] Scheduled Referrals Name Type Priority Associated Diagnoses Orde r Schedule Referral to Podiatry Outpatient Referral Routine Foot-drop, unspecified laterality Expected: 06/28/2024 (Approximate), Expires: 06/28/2025 documented as of this encounter Visit Diagnoses Diagnosis Foot-drop, unspecified laterality- Primary documented in this encounter Additional Health Concerns Assessment Noted Time PHQ-9 Depression Total Score: 0 05/29/19 25 9:15 AM EDT documented as of this encounter Care Teams Marble Mechanic Helper Relationship Specialty Start Date End Date Radha Zarco MD [address] [place] [address] PCP - General Family Medicine 10/31/22 [facility] 08/14/23 documented as of this encounter
--- OUTSIDE RECORDS SUMMARY | 2025-01-29 20:36 | XMS_ITS | Encounter Summary ---
Author Organization [employer] Address [address] [facility] [address] 7[address] [place] [address] Care Team Providers Care Master Coastal Waters Name Role Phone Radha Zarco MD Primary Care Provider [phone] Reason for Visit * Reason Comments Med Refill Encounter Details Date Type Department Care Team ([facility] Contact Info) Description 09/29/2023 Refill [facility] [address] [place], [place] [phone] Radha Zarco MD [address] [place], [place] [phone] Social History Tobacco Use Types Packs/Day Years [...] Description 03/02/2025 2:45 PM EST Office Visit [facility] [address] [place] [address] Olga Lidia Ge FNP [address] [place] [address] documented as of this encounter Visit Diagnoses Not on filedocumented in this encounter Care Teams Master Coastal Waters Relationship Specialty Start Date End Date Radha Zarco MD [address] [place] [address] PCP - General Family Medicine 10/31/22 [facility] 08/14/23 documented as of this encounter
--- OUTSIDE RECORDS SUMMARY | 2025-01-29 20:36 | XMS_ITS | Encounter Summary ---
Author Organization [employer] Address [address] [facility] 7t [place] [address] Care Team Providers Care Manager Php Name Role Phone Radha Zarco MD Primary Care Provider [phone] Reason for Visit * Reason Onset Date Comments Referral 09/03/2023 Encounter Details Date Type Department Care Team ([facility] Contact Info) Description 09/03/2023 Telephone [facility] [address] [place], [place] [phone] Radha Zarco MD [address] [place] [address] Referral Social History Tobacco Use Types Packs/Day Years [...] encounter Miscellaneous Notes * Telephone Encounter - Tysonshabana Thomas Leanne - 09/03/2023 9:25 AM EDT Tc from pt spouse requesting for referral for Physical Therapy to be sent to [address] [place] [address] FAX: [phone] documented in this encounter Plan of Treatment Upcoming Encounters Date Type Department Care Team ([facility] Contact Info) Description 03/02/2025 2:45 PM EST Office Visit [facility] [address] [place] [address] Olga Lidia Ge FNP [address] [place] [address] documented as of this encounter Visit Diagnoses Not on filedocumented in this encounter Care Teams Manager Php Relationship Specialty Start Date End Date Radha Zarco MD [address] [place] [address] PCP - General Family Medicine 10/31/22 [employer] [facility] 08/14/23 documented as of this encounter
--- OUTSIDE RECORDS SUMMARY | 2025-01-29 20:36 | XMS_ITS | Encounter Summary ---
Author Organization [employer] Address [address] [facility] 7t [place] [address] Care Team Providers Care Sporting Goods Sales Manager Name Role Phone Radha Zarco MD Primary Care Provider [phone] Reason for Visit * Reason Onset Date Comments Referral 09/09/2023 Encounter Details Date Type Department Care Team ([facility] Contact Info) Description 09/09/2023 Telephone [facility] [address] [place], [place] [phone] Radha Zarco MD [address] [place] [address] Referral Social History Tobacco Use Types Packs/Day [...] encounter Miscellaneous Notes * Telephone Encounter - Ricardo Damian - 09/09/2023 10:47 AM EDT Tc from patients spouse would like referral for physical therapy to be sent to [facility] at [address] [facility] [address] fax [phone] documented in this encounter Plan of Treatment Upcoming Encounters Date Type Department Care Team (Late st Contact Info) Description 03/02/2025 2:45 PM EST Office Visit [facility] [address] [place] [address] Olga Lidia Ge FNP [address] [place] [address] documented as of this encounter Visit Diagnoses Not on filedocumented in this encounter Care Teams Sporting Goods Sales Manager Relationship Specialty Start Date End Date Radha Zarco MD [address] [place] [address] PCP - General Family Medicine 10/31/22 [employer] 08/14/23 documented as of this encounter
--- OUTSIDE RECORDS SUMMARY | 2025-01-29 20:36 | XMS_ITS | Encounter Summary ---
Author Organization [employer] Address [address] [facility] 7 [place] [address] Care Team Providers Care Financial Reserve Clerk Name Role Phone Radha Zarco MD Primary Care Provider [phone] Reason for Referral * Consultation (Routine) - Closed Specialty Diagnoses / Procedures Referred By Contac t Referred To Contact Nutrition Diagnoses Type 2 diabetes mellitus with hyperglycemia, with long-term current use of insulin ([facility]) Radha Zarco MD [address] [place] [address] Phone: tel: fax: Referral ID Status Reason Start Date Expiration Date V isits Requested Visits Authorized [id number] Closed Consult and Treat 09/10/2024 09/10/2025 1 1 Encounter Details Date Type Department Care Team (Late st Contact Info) Description 09/10/2024 Orders Only [facility] [address] [place] [address] [phone] Radha Zarco MD [address] [place], [place] [phone] Type 2 diabetes mellitus with hyperglycemia, with long-term current use of insulin ([facility]) (Primary Dx) Social History Tobacco Use Types [...] Description 03/02/2025 2:45 PM EST Office Visit [facility] 230 [place] [address] Olga Lidia Ge FNP [address] [place] [address] Scheduled Referrals Name Type Priority Associated Diagnoses Orde r Schedule Referral to Nutrition Therapy Outpatient Referral Routine Type 2 diabetes mellitus with hyperglycemia, with long-term current use of insulin ([facility]) Expected: 09/10/2024 (Approximate), Expires: 09/10/2025 documented as of this encounter Visit Diagnoses Diagnosis Type 2 diabetes mellitus with hyperglycemia, with long-term current use of insulin (HCC)- Primary documented in this encounter Additional Health Concerns Assessment Noted Time PHQ-9 Depression Total Score: 0 05/29/19 25 9:15 AM EDT documented as of this encounter Care Teams Financial Reserve Clerk Relationship Specialty Start Date End Date Radha Zarco MD [address] [place] [address] PCP - General Family Medicine 10/31/22 [facility] [facility] 08/14/23 documented as of this encounter
--- OUTSIDE RECORDS SUMMARY | 2025-01-29 20:36 | XMS_ITS | Encounter Summary ---
Author Organization [employer] Address [address] [place] [address] Care Team Providers Care Glass Breaker Name Role Phone Radha Zarco MD Primary Care Provider [phone] Encounter Details Date Type Department Care Team ([facility] st Contact Info) Description 08/25/2024 Orders Only [facility] [address] [place], [place] [phone] Radha Zarco MD [address] [place] [address] Type 2 diabetes mellitus with hyperglycemia, with long-term current use of insulin ([facility]) (Primary Dx) Social History Tobacco Use Types [...] Description 03/02/2025 2:45 PM EST Office Visit [facility] [address] [place], [place] [phone] Olga Lidia Ge, REMNANTS CUTTER [address] [place], [place] [phone] documented as of this encounter Procedures Procedure Name Priority Date/Time Associated Diagnosis Comments ALBUMIN, RANDOM URINE W/CREATININE Routine 08/27/2024 11:18 AM EDT Type 2 diabetes mellitus with hyperglycemia, with long-term current use of insulin ([facility]) LIPID PANEL, STANDARD Routine 08/27/2024 9:42 AM EDT Type 2 diabetes mellitus with hyperglycemia, with long-term current use of insulin ([facility]) COMPREHENSIVE METABOLIC PANEL Routine 08/27/2024 9:42 AM EDT Type 2 diabetes mellitus with hyperglycemia, with long-term current use of insulin ([facility]) documented in this encounter Results * (ABNORMAL) Albumin, Random Urine W/Creatinine (08/27/2024 11:18 AM EDT) Pathologist [facility] Creatinine, Urine 73.13 mg/dL [facility] Microalbumin Urine 595.0 mg/L H [facility] Microalbum Creatinine Ratio Ur 813.6(H) <30 ug/mg cr [facility] Comment:Albumin/Creatinine R atio Reference Ranges: Normal: < 30 ug/mg creatinine Microalbuminuria: 30 - 300 ug/mg creatinineClinical Albuminuria: > 300 ug/mg creatinine Urine (Urine, Random) 08/27/2024 11:18 AM EDT 08/27/2024 12:47 PM EDT us Radha Zarco MD LAB URINE ORDERABLES Final Res ult [facility] [address] [place] [address] [phone] * (ABNORMAL) Comprehensive Metabolic Panel (08/27/2024 9:42 AM EDT) Pathologist [facility] Sodium 137 135 - 145 mmol/L [facility] Potassium 4.2 3.3 - 5.1 mmol/L [facility] Chloride 104 96 - 108 mmol/L [facility] Carbon Dioxide 27 22 - 29 mmol/L [facility] Anion Gap 10(L) 12 - 20 [facility] Urea Nitrogen (BUN) 18(H) 9 - 16 mg/dL [facility] Creatinine, Serum 0.99 0.5 - 1.4 mg/dL [facility] Estimated Glomerular Filt Rate >60 [facility] Comment:Chronic Kidney Disea se: Estimated GFR < 60 mL/min/1.40s1Fygtko Kidney Disease: Estimated GFR < 15 mL/min/1.73m2 Glucose 275(H) 60 - 115 mg/dL [facility] Calcium 9.1 8.4 - 10.2 mg/dL [facility] Bilirubin, Total 0.4 0.0 - 1.0 mg/dL [facility] Aspartate Amino Transferase 23 5 - 37 U/L [facility] Alanine Aminotransferase 27 0 - 40 U/L [facility] Total Protein 7.2 6.5 - 8.0 g/dL [facility] Albumin Level 4.1 3.5 - 5.0 g/dL [facility] Alkaline Phosphatase 80 39 - 117 U/L [facility] Blood Venous blood specimen / Unknown 08/27/2024 9:42 AM EDT 08/27/2024 11:27 AM EDT Radha Zarco MD LAB BLOOD ORDERABLES Final Res ult [facility] [address] [place] [address] [phone] * (ABNORMAL) Lipid Panel, Standard (08/27/2024 9:42 AM EDT) Triglycerides 100 <150 mg/dL [facility] Comment:Desirable Triglyceri de: less than 150 mg/dLBorderline High Triglyceride 150-199 mg/dLHigh Triglyceride: 200-499 mg/dLVery High Triglyceride: greater than or equal to 5OO mg/dL Cholesterol 159 <200 mg/dL [facility] Comment:Desirable Cholestero l: less than 200 mg/dLBorderline High Cholesterol: 200-239 mg/dLHigh Cholesterol: greater than 239 mg/dL LDL Cholesterol Calculated 104(H) <100 mg/dL [facility] Comment:Desirable LDL: less than 100 mg/dLNear Optimal/Above Optimal LDL: 110- 129 mg/dLBorderline High LDL: 130-159 mg/dLHigh LDL: 160-189 mg/dLVery High LDL: greater than or equal to 190 mg/dL HDL Cholesterol 35(L) >40 mg/dL [facility] Comment:Desirable HDL: great er than 40 mg/dL Note: This HDL assay may give artificially low results in patients with liver disease. Blood Venous blood specimen / Unknown 08/27/2024 9:42 AM EDT 08/27/2024 11:27 AM EDT Radha Zarco MD LAB BLOOD ORDERABLES Final Res ult [facility] [address] [place] [address] [phone] documented in this encounter Visit Diagnoses Diagnosis Type 2 diabetes mellitus with hyperglycemia, with long-term current use of insulin (HCC)- Primary documented in this encounter Additional Health Concerns Assessment Noted Time PHQ-9 Depression Total Score: 0 05/29/19 25 9:15 AM EDT documented as of this encounter Care Teams Glass Breaker Relationship Specialty Start Date End Date Radha Zarco MD [address] [place] [address] PCP - General Family Medicine 10/31/22 [facility] 08/14/23 documented as of this encounter
--- OUTSIDE RECORDS SUMMARY | 2025-01-29 20:36 | XMS_ITS | Encounter Summary ---
Author Organization [employer] Address [address] 7t [place] [address] Care Team Providers Care Investor Relations Coordinator Name Role Phone Radha Zarco MD Primary Care Provider [phone] Reason for Visit * Reason Onset Date Comments Referral 06/28/2024 Encounter Details Date Type Department Care Team ([facility] Contact Info) Description 06/28/2024 Telephone [facility] MEDICINE [address] [place], [place] [phone] Radha Zarco MD [address] [place] [address] Referral Social History Tobacco Use Types Packs/Day [...] encounter Miscellaneous Notes * Telephone Encounter - Vickie Rawls RN - 06/28/2024 3:40 PM EDT TC placed to patient [phone] regarding below message. Patient informed RN that he is working with pt and they are concerned about foot drop. Pt is requesting a referral to see a Fabrication Supervisor. RN informed patient that message will be sent to his PCP to review. Pt verbalized understanding. Pt to F/U PRN. * Telephone Encounter - Eli Luciano - 06/28/2024 11:57 AM EDT Tc from spouse requesting a referral for a loan representative as foot is bothering him in the front part ofthe foot plantar. documented in this encounter Plan of Treatment Upcoming Encounters Date Type Department Care Team (Late st Contact Info) Description 03/02/2025 2:45 PM EST Office Visit [facility] MEDICINE [address] [place] [address] Olga Lidia Ge FNP [address] [place], [place] [phone] documented as of this encounter Visit Diagnoses Not on filedocumented in this encounter Additional Health Concerns Assessment Noted Time PHQ-9 Depression Total Score: 0 05/29/19 25 9:15 AM EDT documented as of this encounter Care Teams Investor Relations Coordinator Relationship Specialty Start Date End Date Radha Zarco MD [address] [place] [address] PCP - General Family Medicine 10/31/22 [facility] 08/14/23 documented as of this encounter
--- OUTSIDE RECORDS SUMMARY | 2025-01-29 20:36 | XMS_ITS | Encounter Summary ---
Author Organization [employer] Address [address] [place] [address] Care Team Providers Care Rehab Rn Name Role Phone Radha Zarco MD Primary Care Provider [phone] Encounter Details Date Type Department Care Team ([facility] st Contact Info) Description 11/18/2023 Orders Only [facility] MED[facility]INE [address] [place], [place] [phone] Radha Zarco MD [address] [place] [address] Chronic right shoulder pain (Primary Dx) Social History Tobacco Use Types [...] Description 03/02/2025 2:45 PM EST Office Visit [facility] [address] [place], [place] [phone] Olga Lidia Ge FNP [address] [place], [place] [phone] documented as of this encounter Procedures Procedure Name Priority Date/Time Associated Diagnosis Comments XR SHOULDER 2+ VIEWS RIGHT Routine 11/18/2023 1:20 PM EDT Chronic right shoulder pain documented in this encounter Results * XR Shoulder 2+ Views Right (11/18/2023 1:20 PM EDT) Anatomical Region Laterality Modality Upper Extremities, Shoulder Right Radi ographic Imaging 11/18/2023 1:2 0 PM EDT Narrative 11/18/2023 3:18 PM EDT [address] [address] XRay Report Signed Patient: Sen Hameed MR#: [id number] [birth year] : 1965 Acct:[id number] Age/Sex: 58 / M ADM Date: 11/18/23 Loc: HO.HHCX Attending Dr: Radha Zarco MD Ordering Physician: Radha Zarco Date of Service: 11/18/23 Procedure(s): XR shoulder RT min 2V Accession Number(s): [id number] cc: Radha Zarco EXAMINATION: XR SHOULDER, RIGHT CLINICAL INFORMATION: Right shoulder pain COMPARISON: None available. TECHNIQUE: Three views of the right shoulder. FINDINGS: No fracture or malalignment. Mild glenohumeral and acromioclavicular osteoarthritis. XR/XR shoulder RT min 2V IMPRESSION: Mild glenohumeral and acromioclavicular osteoarthritis. No fracture. Electronically signed by: Jonathan Khan MD 11/18/2023 03:16 PM EDT RP Dictated By: Jonathan Khan MD Signed By: <Electronically signed by Jonathan Khan MD in OV> 11/18/23 1516 DD/ 1320 TD/TT: 11/18/23 1336 Competitive Intelligence Manager: KARL Procedure Note Donotuseinterpreter, Image - 11/18/[address] [address] XRay Report Signed Patient: Sen Hameed DMR#: [id number] 83 : 1965Acct:[id number] Age/Sex: 58 / MADM Date: 11/18/23 Loc: HO.HHCX Attending Dr: Radha Zarco MD Ordering Physician: Radha Zarco Date of Service: 11/18/23 Procedure(s): XR shoulder RT min 2V Accession Number(s): [id number] cc: Radha Zarco EXAMINATION: XR SHOULDER, RIGHT CLINICAL INFORMATION: Right shoulder pain COMPARISON: None available. TECHNIQUE: Three views of the right shoulder. FINDINGS: No fracture or malalignment. Mild glenohumeral and acromioclavicular osteoarthritis. XR/XR shoulder RT min 2V IMPRESSION: Mild glenohumeral and acromioclavicular osteoarthritis. No fracture. Electronically signed by: Jonathan Khan MD 11/18/2023 03:16 PM EDT RP Dictated By: Jonathan Khan MD Signed By: <Electronically signed by Jonathan Khan MD inOV> 11/18/23 1516 DD/ 1320 TD/TT: 11/18/23 1336 Competitive Intelligence Manager: KARL us Radha Zarco MD IMG XR PROCEDURES Edited Resul t - Final documented in this encounter Visit Diagnoses Diagnosis Chronic right shoulder pain- Primary Pain in joint, shoulder region documented in this encounter Care Teams Rehab Rn Relationship Specialty Start Date End Date Radha Zarco MD [address] [place] [address] PCP - General Family Medicine 10/31/22 [facility] 08/14/23 documented as of this encounter
--- OUTSIDE RECORDS SUMMARY | 2025-01-29 20:36 | XMS_ITS | Encounter Summary ---
Author Organization [employer] Address [address] 7t [place] [address] Care Team Providers Care Humidifier Operator Name Role Phone Mickey Cash Primary Care Provider Unavail Radha Lam MD Primary Care Provider [phone] Encounter Details Date Type Department Care Team ([facility] Contact Info) Description 01/24/2022 Orders Only [facility] [address] [place], [place] [phone] Linda Reed LPN Social History Tobacco Use Types Packs/Day Years Used Date Smoking Tobacco: Never Smokeless Tobacco: Never Alcohol Use Standard Drinks/Week Comments Yes 2 (1 standard drink = 0.6 oz pur e alcohol) Occasionally Sex and Gender Information Value Date Recorded Sex Assigned at Male 12/10/2021 10:39 AM EDT Legal Sex Male 10:39 AM EDT Gender Identity Male 12/10/2021 10:39 AM EDT Sexual Orientation Choose not to disclose 2021 10:39 AM EDT COVID-19 Exposure Response Date Recorded In the last 10 days, have yo u been in contact with someone who was confirmed or suspected to have Coronavirus/COVID-19? No / Unsure 01/18/2022 9:17 AM EST documented as of this encounter Plan of Treatment Upcoming Encounters Date Type Department Care Team ([facility] Contact Info) Description 03/02/2025 2:45 PM EST Office Visit [facility] MEDICINE [address] [place], [place] [phone] Olga Lidia Ge FNP [address] [place], [place] [phone] documented as of this encounter Visit Diagnoses Not on filedocumented in this encounter Care Teams Humidifier Operator Relationship Specialty Start Date End Date Mickey Cash AGNP PCP - General Family Medicine 01/14/22 10/30/22 Radha Zarco MD [address] [place] [address] PCP - General Family Medicine 10/31/22 [facility] 08/14/23 documented as of this encounter
--- NOTE | 2025-01-29 20:37 | ECG_ITS ---
Test Reason : SOB Blood Pressure : */* mmHG Vent. Rate : 97 BPM Atrial Rate : 97 BPM P-R Int : 144 ms QRS Dur : 78 ms QT Int : 334 ms P-R-T Axes : 23 22 24 degrees QTcB Int : 424 ms Normal sinus rhythm Normal ECG When compared with ECG of 09-Jul-2022 12:42, No significant change was found Referred By: Jenna Conley Electronically Signed By: To Whitmore
--- OUTSIDE RECORDS SUMMARY | 2025-01-29 20:37 | XMS_ITS | Encounter Summary ---
Author Organization [employer] Address [address] [place] [address] Care Team Providers Care Trim Setter Helper Name Role Phone Radha Zarco MD Primary Care Provider [phone] Encounter Details Date Type Department Care Team ([facility] st Contact Info) Description 03/10/2023 Orders Only [facility] MEDICINE [address] [place], [place] [phone] Radha Zarco MD [address], [place] [phone] Social History Tobacco Use Types Packs/Day Years [...] Description 03/02/2025 2:45 PM EST Office Visit [facility] MEDICINE [address] [place], [place] [phone] Olga Lidia Ge FNP [address] [place], [place] [phone] documented as of this encounter Procedures Procedure Name Priority Date/Time Associated Diagnosis Comments LIPID PANEL, STANDARD Routine 09/12/2023 2:20 PM EDT COMPREHENSIVE METABOLIC PANEL Routine 09/12/2023 2:20 PM EDT ALBUMIN, RANDOM URINE W/CREATININE Routine 09/12/2023 2:04 PM EDT documented in this encounter Results * (ABNORMAL) Lipid Panel, Standard (09/12/2023 2:20 PM EDT) Triglycerides 75 <150 mg/dL [facility] Comment:Desirable Triglyceri de: less than 150 mg/dLBorderline High Triglyceride 150-199 mg/dLHigh Triglyceride: 200-499 mg/dLVery High Triglyceride: greater than or equal to 5OO mg/dL Cholesterol 134 <200 mg/dL [facility] Comment:Desirable Cholestero l: less than 200 mg/dLBorderline High Cholesterol: 200-239 mg/dLHigh Cholesterol: greater than 239 mg/dL LDL Cholesterol Calculated 85 <100 mg/dL [facility] Comment:Desirable LDL: less than 100 mg/dLNear Optimal/Above Optimal LDL: 110- 129 mg/dLBorderline High LDL: 130-159 mg/dLHigh LDL: 160-189 mg/dLVery High LDL: greater than or equal to 190 mg/dL HDL Cholesterol 34(L) >40 mg/dL [facility] Comment:Desirable HDL: great er than 40 mg/dL Note: This HDL assay may give artificially low results in patients with liver disease. 09/12/2023 2:20 PM EDT 09/12/2023 4:16 PM EDT us Radha Zarco MD LAB BLOOD ORDERABLES Final Res ult [facility] [address] [place] [address] [phone] * (ABNORMAL) Comprehensive Metabolic Panel (09/12/2023 2:20 PM EDT) Sodium 135 135 - 145 mmol/L [facility] Potassium 4.1 3.3 - 5.1 mmol/L [facility] Chloride 101 96 - 108 mmol/L [facility] Carbon Dioxide 25 22 - 29 mmol/L [facility] Anion Gap 13 12 - 20 [facility] Urea Nitrogen (BUN) 18(H) 9 - 16 mg/dL [facility] Creatinine, Serum 0.85 0.5 - 1.4 mg/dL [facility] Estimated Glomerular Filt Rate >60 [facility] Comment:NOTE: For -Am erican individuals, multiply the result by 1.210.Chronic Kidney Disease: Estimated GFR < 60 mL/min/1.28s7Ohbydc Kidney Disease: Estimated GFR < 15 mL/min/1.73m2 Glucose 227(H) 60 - 115 mg/dL [facility] Calcium 9.8 8.4 - 10.2 mg/dL [facility] Bilirubin, Total 0.4 0.0 - 1.0 mg/dL [facility] Aspartate Amino Transferase 14 5 - 37 U/L [facility] Alanine Aminotransferase 19 0 - 40 U/L [facility] Total Protein 7.4 6.5 - 8.0 g/dL [facility] Albumin Level 4.0 3.5 - 5.0 g/dL [facility] Alkaline Phosphatase 84 39 - 117 U/L [facility] 09/12/2023 2:20 PM EDT 09/12/2023 4:16 PM EDT us Radha Zarco MD LAB BLOOD ORDERABLES Final Res ult Performing Organization Address [facility] de Phone Number [facility] [address] [place] [address] [phone] * (ABNORMAL) Albumin, Random Urine W/Creatinine (09/12/2023 2:04 PM EDT) Creatinine, Urine 72.61 mg/dL [facility] Microalbumin Urine 238.0 mg/L [facility] Microalbum Creatinine Ratio Ur 327.7(H) <30 ug/mg cr [facility] Comment:Albumin/Creatinine R atio Reference Ranges: Normal: < 30 ug/mg creatinine Microalbuminuria: 30 - 300 ug/mg creatinineClinical Albuminuria: > 300 ug/mg creatinine 09/12/2023 2:04 PM EDT 09/12/2023 4:20 PM EDT Radha Zarco MD LAB URINE ORDERABLES Final Res ult Performing Organization Address [facility] Co de Phone Number [facility] [address] [place] [address] [phone] documented in this encounter Visit Diagnoses Not on filedocumented in this encounter Care Teams Trim Setter Helper Relationship Specialty Start Date End Date Radha Zarco MD [address] [place] [address] PCP - General Family Medicine 10/31/22 [employer] 08/14/23 documented as of this encounter
--- OUTSIDE RECORDS SUMMARY | 2025-01-29 20:37 | XMS_ITS | Clinical Summary ---
Author Organization [facility] Address [address] [place] [address] Phone Care Team Providers Care Automatic Fancy Machine Operator Name Role Phone Radha Zarco MD Primary Care Provider [phone] Social History Tobacco Use Types Packs/Day Years Used Date Smoking Tobacco: Never Assessed Sex and Gender Information Value Date Recorded Sex Assigned at Not on file Legal Sex Male 4:33 PM EST Gender Identity Not on file Sexual Orientation Not on file Plan of Treatment Health Maintenance Due Date Last Done Comments Colorectal Cancer Screening: Colonoscopy 1967 Diabetes: Annual Foot Exam 1977 Diabetes: Annual Retina Eye Exam 1977 DTaP,Tdap,and Td Vaccines (1 - Tdap) 1986 Hepatitis B Vaccines (1 of 3 - 19+ 3-dose series) 1986 Pneumococcal Vaccine: 50+ Years (1 of 2 - PCV) 1986 RSV Immunization Adult Patients (1 - Risk 50-74 years 1-dose series) 2017 Zoster Vaccines (1 of 2) 2017 Hepatitis C Screening 01/09/2022 Medicare Annual Wellness Visit 01/09/2022 Social Influencers of Health Screening 01/09/2022 Depression Screening 02/11/2024 Diabetes: Annual Urine Albumin-Creatinine Ratio (uACR) 03/03/2024 01/03/2020, 01/03/2020 COVID-19 Vaccine (1 - 2024- season) 2024 Influenza Vaccine (#1) 2024 Diabetes: Blood Sugar [...] Recent Progress Patient-Stated? Author PT LTGs General [address], PT Note: Pt will complete 750 ft [...] degrees - not met Insurance [place] - [place] Advance Directives Documents on File Type Date Recorded Patient Manager Labor Delivery Expl anation Health Care Decision (hx) 07/17/2023 AD MORA DIRECTIVE Health Care Decision (hx) 07/16/2023 HE ALTH CARE PROXY Health Care Decision (hx) 07/16/2023 HE ALTH CARE PROXY Health Care Decision (hx) 07/16/2023 HE ALTH CARE PROXY Care Teams Automatic Fancy Machine Operator Relationship Specialty Start Date End Date Radha Zarco MD [address] [place] [address] PCP - General Senior Software Engineer 03/30/24
--- OUTSIDE RECORDS SUMMARY | 2025-01-29 20:37 | XMS_ITS | Encounter Summary ---
Author Organization [employer] Address [address] [place] [address] Care Team Providers Care Truck Driver Supervisor Name Role Phone Radha Zarco MD Primary Care Provider [phone] Reason for Visit * Reason Onset Date Comments Call Back Request 04/15/2023 Encounter Details Date Type Department Care Team ([facility] Contact Info) Description 04/15/2023 Telephone [facility] MEDICINE [address] [place] [address] Radha Zarco MD [address] [place] [address] Call Back Request Social History Tobacco Use Types Packs/Day Years [...] t he electric, gas, oil or water [employer] threatened to shut off services in your home? No 02/27/2023 Sex and Gender Information Value Date Recorded Sex Assigned at Male 12/10/2021 10:39 AM EDT Legal Sex Male 10:39 AM EDT Gender Identity Male 12/10/2021 10:39 AM EDT Sexual Orientation Choose not to disclose 2021 10:39 AM EDT documented as of this encounter Miscellaneous Notes * Telephone Encounter - Linda Yu RN - 04/15/2023 3:38 PM EST TC returned to Milly Brandt [phone] in regards to below message. Milly is inquiring on pt's mentalhealth from a PCP point of view. RN informed Milly, pt is new to Dr. Zarco (has only had 1 appt on 03/06/23) and PCP mentioned anxiety and plan of pt following w/ Dr. Cartagena and increasing medication Zoloft to 50mg. Milly informed pt's no show rate is 50%. Milly reports she is concerned pt's poor glycemic control is causing pt to have some psychosis. Milly reports the pt is new to her and she was justattempting to gather further information regarding pt's mental health baseline. Milly believes pt should have [facility] for medication management to help better control his DM and BS. Milly reports pt informedAnn, he was taking Trulicity however last OV note reports pt is not using. Milly believes the pt is confused regarding his medications. Milly would like pt to be seen sooner than 06/08. RN informed Milly, RN would call pt and move appt to a sooner date. Milly verbalized understanding. RN called pt [phone] and cancelled appt on 06/08 and scheduled pt for 04/28/23. Pt agreed to newappt date and time. * Telephone Encounter - Maria Victoria Dusty - 04/15/2023 2:47 PM EST Tc from milly with N requesting to speak with provider or nurse in regards to pt. No other information provider. States needs to talk to someone by end of day. Please contact Milly at [phone] documented in this encounter Plan of Treatment Upcoming Encounters Date Type Department Care Team (Late st Contact Info) Description 03/02/2025 2:45 PM EST Office Visit [facility] MEDICINE [address] [place], [place] [phone] Olga Lidia Ge FNP [address] [place], [place] [phone] documented as of this encounter Visit Diagnoses Not on filedocumented in this encounter Care Teams Truck Driver Supervisor Relationship Specialty Start Date End Date Radha Zarco MD [address] [place] [address] PCP - General Family Medicine 10/31/22 [facility] 08/14/23 documented as of this encounter
[2025-01-29 21:37] LABS: MANUAL DIFF FLAG NO
[2025-01-29 21:48] LABS: Hematocrit 36.7 % (42.0-52.0); Hemoglobin 12.8 g/dl (14.0-18.0); Imm Gran Abs Auto 0.03 X10*3/uL (0.00-0.03); Imm Gran Pct Auto 0.3 % (0.0-0.4); Lymphocytes Absolute Auto 2.3 X10*3/uL (1.2-4.9); Mean Corpuscular HGB Conc 34.9 g/dl (31.0-36.0); Mean Corpuscular Hemoglobin 28.0 pg (27.0-33.0); Mean Corpuscular Volume 80.3 fL (80.0-98.0); NRBC Abs Auto 0.000 X10*3/uL (0.0-0.012); NRBC Pct Auto 0.0 /100WBC (0.0-0.2); Platelet Count 237 X10*3/uL (160-400); Red Blood Count 4.57 X10*6/uL (4.60-5.80); White Blood Count 10.9 X10*3/uL (4.8-10.8)
[2025-01-29 21:56] LABS: Alanine Aminotransferase 55 U/L (0-40); Albumin Level 3.7 g/dL (3.5-5.0); Alkaline Phosphatase 118 U/L (39-117); Anion Gap 13 (12-20); Aspartate Amino Transferase 31 U/L (5-37); Blood Urea Nitrogen 18 mg/dL (9-16); Calcium 9.5 mg/dL (8.4-10.2); Carbon Dioxide 25 mmol/L (22-29); Chloride 104 mmol/L (96-108); Creatinine Clr Calc Pharmacy 73.2; Estimated Glomerular Filt Rate > 60; Potassium 4.0 mmol/L (3.3-5.1); Sodium 138 mmol/L (135-145); Total Protein 7.1 g/dL (6.5-8.0)
--- NOTE | 2025-01-29 22:05 | ED.GENADULT ---
HPI - General Adult General Chief complaint: General Medical Stated complaint: high blood sugar Time Seen by Provider: 01/29/25 19:44 History of Present Illness HPI narrative: patient is 59 years old has a history of diabetes, hypertension. Patient takes metformin. Presented today with having high sugar and also high blood pressure at home. There is no chest pain there is no diaphoresis. There is no New focal weakness. patient is from home. Patient did not take his medicine prior to arrival. Noted his blood pressure is 200 over something. His sugar to be 400. He took his metformin and took his blood pressure Medications. Related Data Home Medications ?Medication ?Instructions ?Recorded ?Confirmed albuterol sulfate 90 mcg/actuation 2 puff inhalation Q6H PRN 02/14/21 aerosol inhaler amlodipine 5 mg tablet 5 mg PO DAILY 10/15/24 aripiprazole 10 mg tablet 10 mg PO DAILY 10/15/24 aspirin 81 mg chewable tablet 1 tab PO DAILY 10/15/24 atorvastatin 80 mg tablet 80 mg PO DAILY 10/15/24 empagliflozin 25 mg tablet 25 mg PO DAILY 10/15/24 (Jardiance) glimepiride 4 mg tablet 4 mg PO QAM 10/15/24 losartan 50 mg tablet 50 mg PO DAILY 10/15/24 Previous Rx's ?Medication ?Instructions ?Recorded cetirizine 10 mg tablet 10 mg PO DAILY PRN allergy 07/09/22 symptoms #30 tabs lorazepam 1 mg tablet (Ativan) 1 mg PO BID PRN anxiety #5 tabs 07/09/22 Allergies Allergy/AdvReac Type Severity Reaction Status Date / Time house dust Allergy Unknown Unknown Verified 01/29/25 19:37 Review of Systems Review of Systems: Positive history of baseline right-sided weakness Yes all other systems are reviewed and are negative [facility] Past Medical History Attestation statement: The following information was validated with the patient. Medical History Right hemiparesis Cerebral microvascular disease Social History Social History Smoked in Last 30 Days: No Use of substances other than those prescribed or required for medical reasons: No Advance Directives: No Advance Directives Information Provided: No Physical Exam ED Exam Exam: Appearance: Alert. Oriented X3. No acute distress. Eyes: Pupils equal, round and reactive to light. ENT: Pharynx normal. Neck: Normal inspection. Neck supple. No lymph nodes noted. No crepitus CVS: Normal heart rate and rhythm. Pulses normal. Normal S1 and S2 Respiratory: No respiratory distress. Breath sounds normal. No Wheezing. No rales Abdomen: Soft and nontender. No rigidity. No distention. good BS x4 Skin: Skin warm and dry. Normal skin color. Normal skin turgor. Extremities: No lower extremity edema. Neurovascular intact to all extremities. No Lacerations. No Rash Neuro: Oriented X 3. positive right-sided upper and lower extremity weakness upper extremity can not lift up against gravity lower extremity can lift up against gravity. There is no [id number] on the right side. Neurovascularly intact on the left. Positive facial droop on the right side. Vital Signs: Vital Signs - 24 hr 01/29/25 19:35 01/29/25 19:49 Temperature 97.7 F 97.7 F Pulse Rate 109 H 109 H Respiratory Rate 20 20 Blood Pressure 169/79 H 169/79 H Pulse Oximetry 100 100 Oxygen Delivery Method Room Air Room Air BMI result Body Mass Index 24.4 Medical Decision Making Medical Decision Making [facility] Narrative: Patient's sugar is in the 250 range. Electrolytes showed no evidence of DKA. Patient's white count is 11. Hemoglobin is 12. No acute distress. Patient to be discharged home. Repeat blood pressure check here in the emergency department with 169/79. Currently in stable condition. Patient has no weakness no chest pain or dizziness no nausea no vomiting. No new symptoms. Differential Diagnosis Differential Diagnoses: The differential diagnosis associated with the presentation includes Admission/Observation Consideration of admission/observation: Escalation of care including admission/observation considered Lab Data [facility] Lab Attestation statement: I reviewed the patient's lab results. 01/29/25 21:33 01/29/25 21:33 Labs: Lab Results 01/29/25 01/29/25 Range/Units 19:41 21:33 WBC 10.9 H (4.8-10.8) X10*3/uL RBC 4.57 L (4.60-5.80) X10*6/uL Hgb 12.8 L (14.0-18.0) g/dl Hct 36.7 L (42.0-52.0) % MCV 80.3 (80.0-98.0) fL MCH 28.0 (27.0-33.0) pg MCHC 34.9 (31.0-36.0) g/dl RDW 12.3 (11.0-16.0) % Plt Count 237 (160-400) X10*3/uL MPV 10.7 (9.4-12.4) fL Immature Gran % (Auto) 0.3 (0.0-0.4) % Neut % (Auto) 69.7 (45-73) % Lymph % (Auto) 20.7 (20-40) % [place] % (Auto) 7.8 (2-11) % Eos % (Auto) 1.1 (0-4) % Baso % (Auto) 0.4 (0-2) % Lymph # (Auto) 2.3 (1.2-4.9) X10*3/uL [place] # (Auto) 0.9 (0.1-1.2) X10*3/uL Eos # (Auto) 0.1 (0.0-0.4) X10*3/uL Baso # (Auto) 0.0 (0.0-0.2) X10*3/uL Abs Immat Gran (auto) 0.03 (0.00-0.03) X10*3/uL Absolute Neuts (auto) 7.6 (2.0-8.3) x10*3/uL Absolute Nucleated RBC 0.000 (0.0-0.012) X10*3/uL Nucleated RBC % (auto) 0.0 (0.0-0.2) /100WBC Sodium 138 (135-145) mmol/L Potassium 4.0 (3.3-5.1) mmol/L Chloride 104 (96-108) mmol/L Carbon Dioxide 25 (22-29) mmol/L Anion Gap 13 (12-20) BUN 18 H (9-16) mg/dL Creatinine 1.04 (0.5-1.4) mg/dL Estim Creat Clear Calc 73.2 Estimated GFR > 60 POC Glucose 276 H (60-115) mg/dL Random Glucose 253 H (60-115) mg/dL Calcium 9.5 (8.4-10.2) mg/dL Total Bilirubin 0.3 (0.0-1.0) mg/dL Direct Bilirubin 0.1 (0.0-0.5) mg/dL AST 31 (5-37) U/L ALT 55 H (0-40) U/L Alkaline Phosphatase 118 H (39-117) U/L Total Protein 7.1 (6.5-8.0) g/dL Albumin 3.7 (3.5-5.0) g/dL Independent Interpretation I performed an independent interpretation of an: EKG ( Sinus heart rate is 100 IL QRS QTC normal no acute ST segment elevation.) External Record Review External record reviewed: Office record Social Determinants Patient?s care significantly limited by Social Determinants of Health including: Problems related to primary support group Discharge Plan Discharge Clinical Impression: Acute hyperglycemia, Hypertension Patient Disposition: Home, Self-Care Instructions: Hypertension (ED), Diabetic Hyperglycemia (ED) Prescriptions: No Action cetirizine 10 mg tablet 10 mg PO DAILY PRN (Reason: allergy symptoms) Qty: 30 0RF lorazepam [Ativan] 1 mg tablet 1 mg PO BID PRN (Reason: anxiety) Qty: 5 0RF albuterol sulfate 90 mcg/actuation HFA aerosol inhaler 2 puff inhalation Q6H PRN atorvastatin 80 mg tablet 80 mg PO DAILY amlodipine 5 mg tablet 5 mg PO DAILY glimepiride 4 mg tablet 4 mg PO QAM aspirin 81 mg tablet,chewable 1 tab PO DAILY aripiprazole 10 mg tablet 10 mg PO DAILY Jardiance 25 mg tablet 25 mg PO DAILY losartan 50 mg tablet 50 mg PO DAILY Referrals: Radha Zarco MD [Primary Care Provider, Internal Medicine] - 02/01/25 Print Language: Malay
[2025-01-29 23:18] VITALS: BP 179/93; PULSE 91; RESP 18; TEMP 36.7; O2SAT 98
[2025-01-30 00:45] VITALS: BP 179/93; PULSE 91; RESP 18; TEMP 36.7; O2SAT 98
== END 2025-01-30 00:46 | disposition home or self-care (01) ==
PROVIDERS: Emergency Provider Emergency Medicine Emergency Medical Services; PCP General Practice
DX: E11.65 Type 2 diabetes mellitus with hyperglycemia (principal); I10 Essential (primary) hypertension; Z79.85 Long-term (current) use of injectable non-insulin antidiabetic drugs
CPT/HCPCS: 36415; 80048; 80076; 82947; 85025; 93005; 99283; 99284

== ENCOUNTER → 2025-01-29 20:37 | Outpatient (BNV) | payer MEDICARE, MEDICAID, SELFPAY | PROVIDERS: Emergency Provider Emergency Medicine Emergency Medical Services; PCP General Practice; Visit Provider Internal Medicine Cardiovascular Disease | DX: R06.02 Shortness of breath (principal) | CPT/HCPCS: 93010 ==